=== PATIENT | female | born 1985 | race Caucasian/White ===

== ENCOUNTER 2019-11-05 16:23 | Emergency (ER) | payer OTHER ==
[2019-11-05] MEDS ORDERED: Norflex 60 MG/2 ML IM ONE (17:52)
[2019-11-05] MEDS ORDERED: TORAdol 30 mg Injection IM ONE (17:52)
[2019-11-05] MEDS ORDERED: Norflex 60 MG/2 ML ONE (17:56)
[2019-11-05] MEDS ORDERED: TORAdol 30 mg Injection ONE (17:56)
--- NOTE | 2019-11-05 18:20 | ERPHSYRPT ---
- History of Present Illness Time Seen by Provider: 11/05/19 16:53 Source: patient Exam Limitations: no limitations Patient Subjective Stated Complaint: pt reports dizziness upon standing, also reports neck and head pain. pt reports that her lymph nodes are enlarged and very painful. pt also reports nose bleed and intermittent fever. pt reports that she is currently being treated for her symptoms with prednisone and levaquin. Triage Nursing Assessment: pt is aox3, pupils perrl, afebrile, resps easy and non labored, radial pulses strong and equal, cap refill < 3 seconds, pt skin pink warm dry. pt appears in no acute distress, ambulatory to trt room with no diffiulty. Physician History: 33 years old female presented in the ER with a chief complaint ofneck pain off and on for the last few weeks to months. She also had a large lymph nodes in the neck and was treated with Levaquin and prednisone which he is currently taking. The patient reports having moderate to severe sharp shooting pain in neck more on the right side mostly in the muscles, aggravated with minimal movements and partially for being stolen and applying ice. Pain is also radiating to both upper shoulder areas. Denies any numbness tingling or weakness of the upper extremities. Denies any midline back pain. She also has pain stretching of the back of her head. Denies any fall or trauma. She has sinus infection multiple times and was seen by ENT and has nasal septum surgery done. Patient reports she's still having clear yellow color not in R. ear she had some bleeding that stopped after applying pressure. She is not bleeding currently. Denies any chest pain palpitations or shortness of breath. No numbness tingling or weakness. Denies any blurry vision or diplopia. Timing/Duration: week(s), intermittent, worse (A.AV date lives in a) Severity: moderate Modifying Factors: Improves With: cold therapy, immobilization, movement Associated Symptoms: fever, No abdominal pain, No shortness of breath, No diaphoresis, No cough, No headaches, No loss of appetite, No syncope, No seizure , No weakness Allergies/Adverse Reactions: citalopram hydrobromide [From Celexa] Allergy (Verified 11/05/19 16:47) Sulfa (Sulfonamide Antibiotics) Allergy (Verified 11/05/19 16:47) tramadol HCl [From Ultram] Allergy (Verified 11/05/19 16:47) Home Medications: Dextroamphetamine/Amphetamine [Adderall 10 mg Tablet] 0 mg PO CLARIFY 11/05/19 [ History] Duloxetine HCl 30 mg [Cymbalta 30 MG Capsule] 0 mg PO CLARIFY 11/05/19 [ History] Levofloxacin [Levaquin] 0 mg PO CLARIFY 11/05/19 [History] Prednisone 0 mg PO CLARIFY 11/05/19 [History] Pregabalin [Lyrica 100Mg] 0 mg PO CLARIFY 11/05/19 [History] Hx Tetanus, Diphtheria Vaccination/Date Given: Yes Hx Influenza Vaccination/Date Given: No Hx Pneumococcal Vaccination/Date Given: No Immunizations Up to Date: Yes - Review of Systems Constitutional: Fever, Fatigue Eyes: No Symptoms Ears, Nose, & Throat: Ear Pain, Nose Congestion, Nose Discharge, Sinus Drainage , Epistaxis Respiratory: No Symptoms Cardiac: No Symptoms Abdominal/Gastrointestinal: No Symptoms Genitourinary Symptoms: No Symptoms Musculoskeletal: Neck Pain Skin: No Symptoms Neurological: No Symptoms, Headache Psychological: No Symptoms Endocrine: No Symptoms Hematologic/Lymphatic: No Symptoms Immunological/Allergic: No Symptoms - Past Medical History Pertinent Past Medical History: Yes Musculoskeletal History: Other Psycho-Social History: Depression Female Reproductive Disorders: Cervical Cancer, Endometriosis Other Medical History: SHOULDER SURGERY X 3 FOR TORN MUSCLES AND SHREDDED IN LEFT SHOULDER - Past Surgical History Past Surgical History: Yes Neuro Surgical History: No Pertinent History Cardiac: No Pertinent History Respiratory: No Pertinent History Gastrointestinal: Appendectomy Musculoskeletal: Orthopedic Surgery Female Surgical History: Section, Hysterectomy Other Surgical History: left wrist - plate and screws. granulomas removed from lower abdomen. cyst removed from right neck. deviated septum repair. sinus surgery - Social History Smoking Status: Current every day smoker Drug Use: none Patient Lives Alone: No - Female History Hx Last Menstrual Period: hyst Hx Now: No - Nursing Vital Signs Nursing Vital Signs: Initial Vital Signs Temperature 98.3 F 11/05/19 16:33 Pulse Rate 91 H 11/05/19 16:33 Respiratory Rate 11/05/19 16:33 Blood Pressure 115/79 11/05/19 16:33 O2 Sat by Pulse Oximetry 98 11/05/19 16:33 Pain Scale Pain Intensity 5 - Physical Exam General Appearance: no apparent distress Eye Exam: PERRL/EOMI, eyes nml inspection Ears, Nose, Throat Exam: TMs normal, pharyngeal erythema (aall) Neck Exam: normal inspection, supple, full range of motion, other (is tender right trapezius area. No midline tenderness at all. No crepitus. 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, normal mood/affect, nml cerebellar function Skin Exam: normal color SpO2 Interpretation: normal SpO2: 99 O2 Delivery: Room Air - Course Nursing assessment & vital signs reviewed: Yes Ordered Tests: Active Orders 24 hr Category Date Time Status CERVICAL SPINE WO CONTRAST [CT] Stat Exams 11/05/19 17:53 Taken Medication Summary Discontinued Medications Generic Name Dose Route Start Last Admin Trade Name Freq PRN Reason Stop Dose Admin Ketorolac Tromethamine 30 mg 11/05/19 17:52 11/05/19 17:57 Toradol 30 Mg Injection IM 11/05/19 17:53 30 mg STAT ONE Administration Ketorolac Tromethamine Confirm 11/05/19 17:56 Toradol 30 Mg Injection Administered 11/05/19 17:57 Dose 30 mg .ROUTE .STK-MED ONE Orphenadrine Citrate 60 mg 11/05/19 17:52 11/05/19 17:57 Norflex 60 Mg/2 Ml IM 11/05/19 17:53 60 mg STAT ONE Administration Orphenadrine Citrate Confirm 11/05/19 17:56 Norflex 60 Mg/2 Ml Administered 11/05/19 17:57 Dose 60 mg .ROUTE .STK-MED ONE - Progress Progress: improved, pain not gone completely, re-examined Progress Note: sssandro is given Toradol and Norflex, feeling better on reevaluation. Nonfocal neuro exam. She has obvious tenderness in the neck muscles, no midline tenderness, I have obtained CT which showed neck muscle spasm but no acute finding in the C-spine. I believe because of the neck muscle spasm she is having pain in the back of her head/occipital area. She does not have any nasal bleed during ER although she has friable nasal mucosa but no signs of recent bleeding or lesion. Negative orthostatics. I do not think patient needs any further workup but would place her on NSAIDs and muscle relaxants and outpatient followup. Patient was reporting that muscle relaxants does not help and taking NSAIDs also not make much difference. I would not place her on narcotic pain medications. Patient and family were not happy the patient's pain is not completely resolved but the pain is more of a musculoskeletal. They 're counseled and is being discharged. Counseled pt/family regarding: diagnosis, need for follow-up, rad results - Departure Departure Disposition: Home Clinical Impression: Neck muscle strain Qualifiers: Encounter type: initial encounter Qualified Code(s): S16.1XXA - Strain of muscle, fascia and tendon at neck level, initial encounter Condition: Stable Critical Care Time: No Referrals: DOCTOR,NO FAMILY [Primary Care Provider] - TERESA PRUETT [ACTIVE STAFF] - Follow Up with PCP/3 days Instructions: Cervical Muscle Strain (DC), Neck Sprain (DC) Additional Instructions: /ibuprofen as needed along with muscle relaxants. Follow up with primary care physician for reevaluation. Return to ER for intractable pain, numbness tingling weakness of extremities etc. Prescriptions: Ibuprofen 600 mg PO Q6HPRN PRN 10 Days #20 tablet PRN Reason: Pain Cyclobenzaprine HCl 10 mg [Flexeril 10 MG] 10 mg PO TID #12 tablet
[2019-11-05 19:18] VITALS: BP 109/73; PULSE 95
[2019-11-05 19:20] VITALS: O2SAT 99
--- NOTE | 2019-11-06 08:36 | XRAY ---
Indication: Knots back of head and neck. Subluxation/impingement. Multiple contiguous axial images obtained through the cervical spine. Sagittal and coronal reformatted images obtained. Comparison: None Axial images negative for acute fracture, suspicious bony lesions, or spinal canal stenosis. Sagittal and coronal reformatted images demonstrates cervical lordotic straightening, positional versus paraspinal spasm. Vertebral body heights/disc spaces maintained. No acute compression fracture, subluxation, or jumped facet. Normal appearing craniocervical junction. Visualized noncontrasted soft tissues including base of the brain and lung apices are unremarkable. Impression: 1. Cervical lordotic straightening, positional versus paraspinal spasm. 2. Remaining CT cervical spine is negative.
== END 2019-11-05 19:54 | disposition home or self-care (01) ==
LOC: ED 16:23
DX: S16.1XXA Strain of muscle, fascia and tendon at neck level, initial encounter (principal); M50.90 Cervical disc disorder, unspecified, unspecified cervical region; Z85.41 Personal history of malignant neoplasm of cervix uteri; N80.9 Endometriosis, unspecified
CPT/HCPCS: 72125; 96372; 99284; J1885; J2360

== ENCOUNTER 2020-03-19 22:48 | Emergency (ER) | payer OTHER ==
--- NOTE | 2020-03-19 23:22 | ERPHSYRPT ---
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 slight decrease in subjective sensation index Timing/Duration: today Quality: painful Severity: moderate Location: other (left index lac) Possible Causes: other (lac from supervisor tree [employer] nut [employer]) Associated Symptoms: denies symptoms Allergies/Adverse Reactions: citalopram hydrobromide [From Celexa] Allergy (Verified 11/05/19 16:47) Sulfa (Sulfonamide Antibiotics) Allergy (Verified 11/05/19 16:47) tramadol HCl [From Ultram] Allergy (Verified 11/05/19 16:47) Home Medications: Dextroamphetamine/Amphetamine [Adderall 10 mg Tablet] 0 mg PO CLARIFY 11/05/19 [ History] Pregabalin [Lyrica 100Mg] 0 mg PO CLARIFY 11/05/19 [History] Hx Tetanus, Diphtheria Vaccination/Date Given: Yes Hx Influenza Vaccination/Date Given: No Hx Pneumococcal Vaccination/Date Given: No - Review of Systems Constitutional: No Fever, No Chills Eyes: No Symptoms Ears, Nose, & Throat: No Symptoms Respiratory: No Cough, No Dyspnea Cardiac: No Chest Pain, No Edema, No Syncope Abdominal/Gastrointestinal: No Abdominal Pain, No Nausea, No Vomiting, No Diarrhea Genitourinary Symptoms: No Dysuria Musculoskeletal: No Back Pain, No Neck Pain Skin: Skin Lesions (lac), No Rash Neurological: No Dizziness, No Focal Weakness, No Sensory Changes Psychological: No Symptoms Endocrine: No Symptoms All Other Systems: Reviewed and Negative - Past Medical History Pertinent Past Medical History: Yes Musculoskeletal History: Other Psycho-Social History: Depression Female Reproductive Disorders: Cervical Cancer, Endometriosis Other Medical History: SHOULDER SURGERY X 3 FOR TORN MUSCLES AND SHREDDED IN LEFT SHOULDER - Past Surgical History Past Surgical History: Yes Neuro Surgical History: No Pertinent History Cardiac: No Pertinent History Respiratory: No Pertinent History Gastrointestinal: Appendectomy Musculoskeletal: Orthopedic Surgery Female Surgical History: Section, Hysterectomy Other Surgical History: left wrist - plate and screws. granulomas removed from lower abdomen. cyst removed from right neck. deviated septum repair. sinus surgery - Social History Smoking Status: Current every day smoker Drug Use: none Patient Lives Alone: No - Nursing Vital Signs Nursing Vital Signs: Initial Vital Signs Pulse Rate 93 H 03/19/20 22:48 Respiratory Rate 20 03/19/20 22:48 Blood Pressure 121/87 03/19/20 22:48 O2 Sat by Pulse Oximetry 100 03/19/20 22:48 Pain Scale Pain Intensity 8 - Physical Exam General Appearance: no apparent distress, alert Eye Exam: PERRL/EOMI, eyes nml inspection Ears, Nose, Throat Exam: normal ENT inspection, pharynx normal, moist mucous membranes Neck Exam: normal inspection, non-tender, supple, full range of motion Respiratory Exam: normal breath sounds, lungs clear, No respiratory distress Cardiovascular Exam: regular rate/rhythm, normal heart sounds Gastrointestinal/Abdomen Exam: soft, mass, No tenderness Pelvic Exam: deferred Rectal Exam: deferred Back Exam: normal inspection, normal range of motion, No CVA tenderness, No vertebral tenderness Extremity Exam: normal inspection, normal range of motion Neurologic Exam: alert, oriented x 3, cooperative, normal mood/affect, other ( slight decrease in sensation distal left index may be digital nerve injury.), No motor deficits Skin Exam: normal color, warm, dry, laceration (left index into SQ), other SpO2 Interpretation: normal O2 Delivery: Room Air Procedures - Laceration/Wound Repair Left Finger Wound Location: Left Wound Length (cm): 2 Wound's Depth, Shape: irregular, flap, into subcut Wound Explored: no foreign body noted Irrigated: Yes Hibiclens Prep: Yes Anesthesia: local, 1% Lidocaine Volume Anesthetic (ccs): 2 Wound Debrided: minimal Wound Repaired With: sutures Suture Size/Type: 4-0, prolene Number of Sutures: 6 Layer Closure?: No Sterile Dressing Applied?: Yes Splint Applied?: Yes Sling Applied?: No - Course Nursing assessment & vital signs reviewed: Yes - Progress Progress: improved, re-examined Counseled pt/family regarding: diagnosis, need for follow-up - Departure Departure Disposition: Home Clinical Impression: laceration left index with nerve injury Condition: Good Critical Care Time: No Referrals: DOCTOR,NO FAMILY [Primary Care Provider] - Instructions: Laceration Repair With Stitches (DC) Additional Instructions: followup with your dr - sutures may be removed in 10 days return meantime if any redness, drainage or other concerns- see your Dr. for the loss of sensation which may be a nerve injury- sometimes this is just a nerve bruise and will recover in a few days., but the nerve in that area may have also been cut by the injury. Prescriptions: Mupirocin [Bactroban OINTMENT] 22 gm TP BID #1 tube
[2020-03-19 23:30] VITALS: O2SAT 100
[2020-03-19] MEDS ORDERED: NORCO 5/325 MG PO ONE (23:57)
[2020-03-20] MEDS ORDERED: NORCO 5/325 MG ONE (00:03)
[2020-03-20 00:12] VITALS: BP 108/76; PULSE 89
== END 2020-03-20 00:12 | disposition home or self-care (01) ==
LOC: ED 22:48
DX: S64.491A Injury of digital nerve of left index finger, initial encounter (principal); W45.8XXA Other foreign body or object entering through skin, initial encounter; W27.8XXA Contact with other nonpowered hand tool, initial encounter; Y93.H2 Activity, gardening and landscaping; Y92.89 Other specified places as the place of occurrence of the external cause
CPT/HCPCS: 12001; 99283; A9270-GY

== ENCOUNTER 2020-08-22 18:57 | Emergency (ER) | payer OTHER ==
[2020-08-22 19:32] LABS: Appearance SLIGHTLY CLOUDY (CLEAR); Bacteria RARE /HPF (NEGATIVE); Bilirubin SMALL (NEGATIVE); Blood NEGATIVE Ery/ul (0-5); Epithelial Cells RARE /HPF (FEW); Glucose NEGATIVE (NEGATIVE); Ketones TRACE (NEGATIVE); Leukocyte Esterase TRACE (NEGATIVE); Mucus SLIGHT /HPF (NEGATIVE); Nitrite NEGATIVE (NEGATIVE); Protein,Urine Dip 30 (Negative); Urobilinogen NEGATIVE mg/dL (0-1)
[2020-08-22 19:47] LABS: Amphetamine,Urine POSITIVE (NEGATIVE); Barbiturate,Urine NEGATIVE (NEGATIVE); Benzodiazepine,Urine NEGATIVE (NEGATIVE); Cocaine,Urine NEGATIVE (NEGATIVE); Methadone,Urine NEGATIVE (NEGATIVE); Opiate,Urine POSITIVE (NEGATIVE); PCP,Urine NEGATIVE (NEGATIVE); THC,Urine NEGATIVE (NEGATIVE)
--- NOTE | 2020-08-22 20:04 | ERPHSYRPT ---
- History of Present Illness Historian: patient Patient Subjective Stated Complaint: pt states that she has been having vom iting, diarrhea and trouble urinating since , pt states that she is having abd pain that radiates to rt flank Triage Nursing Assessment: pt ambulated into the er; pt is axo x4; c/o rt abd and rt flank pain; states 8/10 pain to rt abd and rt flank; abd is soft, hyperactive bowel sounds in all quads, tenderness with palpation to RUQ; tenderness to rt flank area; c/o N/D; c/o difficulty urinating; vitals wnl Physician History: 34 yo wf w R flank/R abdominal pain x 4 days. Pain 8/10 and sharp. Nothing makes the pain better or worse. She has frequency/urgency/mild dysuria/fever/mild diarrhea. Pt has a h/o uti's/kidney stones. is denied. Timing/Duration: other (4 days) Activities at Onset: rest Quality: sharpness Abdominal Pain Onset Location: RLQ, flank Pain Radiation: flank Severity of Pain-Max: severe Severity of Pain-Current: severe Modifying Factors: Improves With: nothing, urinating Associated Symptoms: back, fever/chills Previous symptoms: same symptoms as today Allergies/Adverse Reactions: citalopram hydrobromide [From Celexa] Allergy (Verified 08/22/20 19:04) Sulfa (Sulfonamide Antibiotics) Allergy (Verified 08/22/20 19:04) tramadol HCl [From Ultram] Allergy (Verified 08/22/20 19:04) Home Medications: Dextroamphetamine/Amphetamine [Adderall 10 mg Tablet] 20 mg PO BID 11/05/19 [History] Pregabalin [Lyrica 100Mg] 10 mg PO DAILY 11/05/19 [History] Duloxetine HCl 30 mg PO DAILY 08/22/20 [History] Hydrocodone Bit/Acetaminophen [[place] 10-325 Tablet] 1 tab PO BID 08/22/20 [History] Tizanidine HCl 4 mg PO TID 08/22/20 [History] Hx Tetanus, Diphtheria Vaccination/Date Given: Yes Hx Influenza Vaccination/Date Given: No Hx Pneumococcal Vaccination/Date Given: No Travel Risk - International Travel Have you traveled outside of the country in past 3 weeks: No - Coronavirus Screening Are you exhibiting any of the following symptoms?: Yes Symptoms: Fever, Vomiting/Diarrhea, Headaches/Body Aches/Fatigue Close contact with a COVID-19 positive Pt in past 14-21 Days: No - Review of Systems Constitutional: Fever, Chills Eyes: No Symptoms Ears, Nose, & Throat: No Symptoms Respiratory: No Symptoms Cardiac: No Symptoms Abdominal/Gastrointestinal: Abdominal Pain, Vomiting, Diarrhea Genitourinary Symptoms: Dysuria, Frequency, Urgency Musculoskeletal: No Symptoms Skin: No Symptoms Neurological: No Symptoms Psychological: No Symptoms Endocrine: No Symptoms Hematologic/Lymphatic: No Symptoms Immunological/Allergic: No Symptoms - Past Medical History Pertinent Past Medical History: Yes Musculoskeletal History: Other Psycho-Social History: Depression Female Reproductive Disorders: Cervical Cancer, Endometriosis Other Medical History: SHOULDER SURGERY X 4 FOR TORN MUSCLES AND SHREDDED IN LEFT SHOULDER - Past Surgical History Past Surgical History: Yes Neuro Surgical History: No Pertinent History Cardiac: No Pertinent History Respiratory: No Pertinent History Gastrointestinal: Appendectomy Musculoskeletal: Orthopedic Surgery Female Surgical History: Section, Hysterectomy Other Surgical History: left wrist - plate and screws. granulomas removed from lower abdomen. cyst removed from right neck. deviated septum repair. sinus surgery - Social History Smoking Status: Current every day smoker Exposure to second hand smoke: Yes Drug Use: none Patient Lives Alone: No - Female History Hx Now: No - Nursing Vital Signs Nursing Vital Signs: Initial Vital Signs Temperature 98.4 F 08/22/20 19:09 Pulse Rate 109 H 08/22/20 19:09 Respiratory Rate 16 08/22/20 19:09 Blood Pressure 122/80 08/22/20 19:09 O2 Sat by Pulse Oximetry 99 08/22/20 19:09 Pain Scale Pain Intensity 8 - Physical Exam General Appearance: no apparent distress Eye Exam: PERRL/EOMI, eyes nml inspection Ears, Nose, Throat Exam: normal ENT inspection, TMs normal, pharynx normal, moist mucous membranes Neck Exam: normal inspection, non-tender, supple, No meningismus, No mass, No Brudzinski, No Kernig's Respiratory Exam: normal breath sounds, lungs clear, airway intact Cardiovascular Exam: regular rate/rhythm, normal heart sounds, normal peripheral pulses, No murmur Gastrointestinal/Abdomen Exam: soft, tenderness (Mild suprapubic ttp wo guarding or rebound) Pelvic Exam: not done Back Exam: CVA tenderness (R mild) Extremity Exam: normal inspection, normal range of motion Neurologic Exam: alert, oriented x 3, cooperative, 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, normal mood/affect, sensation nml, No motor deficits, No sensory deficit Skin Exam: normal color, warm, dry Lymphatic Exam: No adenopathy SpO2 Interpretation: normal SpO2: 99 O2 Delivery: Room Air - Course Nursing assessment & vital signs reviewed: Yes Ordered Tests: Active Orders 24 hr Category Date Time Status CULTURE,URINE Stat Lab 08/22/20 19:09 Received HCG,QUALITATIVE URINE Stat Lab 08/22/20 19:29 Completed UA W/RFX UR CULTURE Stat Lab 08/22/20 19:09 Completed Urine Triage Profile Stat Lab 08/22/20 19:29 Completed Lab/Rad Data: Laboratory Results 08/22/20 08/22/20 08/22/20 Range/Units 19:29 19:29 19:09 Urine Color SHARIF (YELLOW) Urine Appearance SLIGHTLY CLOUDY (CLEAR) Urine pH 5.0 (5-6) Ur Specific [place] 1.040 (1.005-1.025) Urine Protein 30 (Negative) Urine Ketones TRACE (NEGATIVE) Urine Blood NEGATIVE (0-5) [place]/ul Urine Nitrite NEGATIVE (NEGATIVE) Urine Bilirubin SMALL (NEGATIVE) Urine Urobilinogen NEGATIVE (0-1) mg/dL Ur Leukocyte Esterase TRACE (NEGATIVE) Urine WBC (Auto) 16-25 (0-5) /HPF Urine RBC (Auto) 3-5 (0-2) /HPF U Hyaline Cast (Auto) 3-5 (0-2) /LPF U Epithel Cells (Auto) RARE (FEW) /HPF Urine Bacteria (Auto) RARE (NEGATIVE) /HPF Urine Mucus (Auto) SLIGHT (NEGATIVE) /HPF Urine Culture Reflexed YES (NO) Urine Glucose NEGATIVE (NEGATIVE) mg/dL Urine HCG, Qual NEGATIVE (Negative) Urine Opiates Level POSITIVE (NEGATIVE) Ur Methadone NEGATIVE (NEGATIVE) Urine Barbiturates NEGATIVE (NEGATIVE) Ur Phencyclidine (PCP) NEGATIVE (NEGATIVE) Urine Amphetamine POSITIVE (NEGATIVE) U Benzodiazepine Level NEGATIVE (NEGATIVE) Urine Cocaine NEGATIVE (NEGATIVE) Urine Marijuana (THC) NEGATIVE (NEGATIVE) - Progress Progress Note: 08/22/20 20:03 Pt refused pain meds. Wants work excuse. Counseled pt/family regarding: lab results - Departure Departure Disposition: Home Clinical Impression: Urinary tract infection Condition: Stable Critical Care Time: No Referrals: CASSANDRA WICK NP [Primary Care Provider] - Instructions: Urinary Tract Infection, Adult (DC) Additional Instructions: Fluids Motrin/tylenol for pain Follow up with your family MD in 1-2 days Return to ER for increasing pain or temperature greater than 100.5 Forms: Work/School Release Form Prescriptions: Nitrofurantoin Monohyd/M-Cryst [Macrobid 100 mg Capsule] 100 mg PO BID 7 Days #14 capsule
[2020-08-22 20:19] VITALS: BP 101/72; PULSE 112
[2020-08-23 00:22] VITALS: O2SAT 99
== END 2020-08-22 20:16 | disposition home or self-care (01) ==
LOC: ED 18:57
DX: N39.0 Urinary tract infection, site not specified (principal)
CPT/HCPCS: 80307; 81001; 84703; 87086; 99283

== ENCOUNTER 2021-04-02 15:10 | Emergency (ER) | payer OTHER ==
[2021-04-02 15:29] VITALS: BP 136/82; PULSE 90; O2SAT 98
--- NOTE | 2021-04-02 16:24 | ERPHSYRPT ---
- History of Present Illness Time Seen by Provider: 04/02/21 15:35 Source: patient Exam Limitations: no limitations Patient Subjective Stated Complaint: pt here for pain and bruising to right foot, she is unawear of injury. she states she was cleaning and moving things yesterday Triage Nursing Assessment: pt alert, resp easy, face mask in place, skin w/d/p,.has bruising and some swelling to foot Physician History: Patient is a 35-year-old female who presents with a complaint of pain and bruising of her right foot since yesterday. She has increased pain with walking she can move her great toe but there is pain associated and she does not know of any injury that she might of suffered although she was moving furniture and working yesterday. Inspect was reviewed and is outstanding Method of Injury: unknown Occurred: yesterday Quality: aching Severity of Pain-Max: moderate Severity of Pain-Current: moderate Lower Extremities Pain: foot: right Modifying Factors: Improves With: movement Associated Symptoms: none Allergies/Adverse Reactions: citalopram hydrobromide [From Celexa] Allergy (Verified 04/02/21 15:29) ketorolac [From Toradol] Allergy (Verified 04/02/21 15:30) Sulfa (Sulfonamide Antibiotics) Allergy (Verified 04/02/21 15:29) tramadol HCl [From Ultram] Allergy (Verified 04/02/21 15:29) Home Medications: Dextroamphetamine/Amphetamine [Adderall 10 mg Tablet] 20 mg PO BID 11/05/19 [History] Pregabalin [Lyrica 100Mg] 10 mg PO DAILY 11/05/19 [History] Duloxetine HCl 30 mg PO DAILY 08/22/20 [History] Hydrocodone Bit/Acetaminophen [[place] 10-325 Tablet] 1 tab PO BID 08/22/20 [History] Amoxicillin [AMOXIL 250 MG CAPSULE] 1 ea TID 04/02/21 [History] Hx Tetanus, Diphtheria Vaccination/Date Given: Yes Hx Influenza Vaccination/Date Given: No Hx Pneumococcal Vaccination/Date Given: No Immunizations Up to Date: Yes Travel Risk - International Travel Have you traveled outside of the country in past 3 weeks: No - Coronavirus Screening Are you exhibiting any of the following symptoms?: No Close contact with a COVID-19 positive Pt in past 14-21 Days: No - Vaccine Status Have you recieved a Covid-19 vaccination: No - Review of Systems Constitutional: No Fever, No Chills Eyes: No Symptoms Ears, Nose, & Throat: No Symptoms Respiratory: No Cough, No Dyspnea Cardiac: No Chest Pain, No Edema, No Syncope Abdominal/Gastrointestinal: No Abdominal Pain, No Nausea, No Vomiting, No Diarrhea Genitourinary Symptoms: No Dysuria Musculoskeletal: No Back Pain, No Neck Pain Skin: No Rash Neurological: No Dizziness, No Focal Weakness, No Sensory Changes Psychological: No Symptoms Endocrine: No Symptoms All Other Systems: Reviewed and Negative - Past Medical History Pertinent Past Medical History: Yes Musculoskeletal History: Other Psycho-Social History: Anxiety, Attention Deficit Disorder, Depression Female Reproductive Disorders: Cervical Cancer, Endometriosis Other Medical History: SHOULDER SURGERY X 4 FOR TORN MUSCLES AND SHREDDED IN LEFT SHOULDER ,lupus - Past Surgical History Past Surgical History: Yes Neuro Surgical History: No Pertinent History Cardiac: No Pertinent History Respiratory: No Pertinent History Gastrointestinal: Appendectomy, Exploratory Laparoscopy Musculoskeletal: Orthopedic Surgery Female Surgical History: Hysterectomy, Dilation & Curettage, Section Other Surgical History: left wrist - plate and screws,skin grafting. granulomas removed from lower abdomen. cyst removed from right neck. deviated septum repair. sinus surgery - Social History Smoking Status: Current every day smoker Exposure to second hand smoke: Yes Drug Use: none Patient Lives Alone: No - Female History Hx Last Menstrual Period: hyster Hx Now: No - Nursing Vital Signs Nursing Vital Signs: Initial Vital Signs Temperature 97.5 F 04/02/21 15:23 Pulse Rate 90 04/02/21 15:23 Respiratory Rate 16 04/02/21 15:23 Blood Pressure 136/82 04/02/21 15:23 O2 Sat by Pulse Oximetry 98 04/02/21 15:23 Pain Scale Pain Intensity 8 - Physical Exam General Appearance: mild distress Eyes, Ears, Nose, Throat Exam: normal ENT inspection Neck Exam: normal inspection, non-tender, supple Cardiovascular/Respiratory Exam: no respiratory distress Back Exam: normal inspection, normal range of motion Hips Exam: bilateral: normal inspection, no evidence of injury Legs Exam: bilateral leg: non-tender, normal range of motion Knees Exam: bilateral knee: non-tender, normal inspection, normal range of motion Ankle Exam: bilateral ankle: non-tender, normal inspection, normal range of motion Foot Exam: right foot: bone tenderness, ecchymosis, limited range of motion, soft tissue tenderness Neuro/Tendon Exam: normal sensation, normal motor functions Mental Status Exam: alert, oriented x 3, cooperative Skin Exam: ecchymosis (Great toe and first metatarsophalangeal joint) SpO2 Interpretation: normal SpO2: 98 O2 Delivery: Room Air - Course Nursing assessment & vital signs reviewed: Yes - Radiology Exams Foot X-ray Interpretation: Interpreted by me, Negative Ordered Tests: Active Orders 24 hr Category Date Time Status FOOT (MINIMUM 3 VIEWS) Stat Exams 04/02/21 16:16 Taken - Progress Progress: unchanged - Departure Departure Disposition: Home Clinical Impression: Contusion of right foot Condition: Stable Critical Care Time: No Referrals: CASSANDRA WICK NP [Primary Care Provider] - Instructions: Contusion (DC)
--- NOTE | 2021-04-02 19:37 | XRAY ---
Indication: Pain and bruising following injury. Comparison: None 3 nonweightbearing views right foot demonstrates normal bones, articulation, and soft tissues.
== END 2021-04-02 16:35 | disposition home or self-care (01) ==
LOC: ED 15:10
DX: S90.31XA Contusion of right foot, initial encounter (principal); M79.671 Pain in right foot; Z79.899 Other long term (current) drug therapy; Z79.891 Long term (current) use of opiate analgesic
CPT/HCPCS: 73630; 99283

== ENCOUNTER 2021-06-15 13:47 | Emergency (ER) | payer OTHER ==
--- NOTE | 2021-06-15 13:56 | ERPHSYRPT ---
- History of Present Illness Time Seen by Provider: 06/15/21 13:56 Source: patient Exam Limitations: no limitations Physician History: This is a 35-year-old white female who has chronic right ear infections that have been recurrent over the last 2 months. She just moved in this area from [place] per her report. Patient states that she is on hydrocodone for pain chronically. She had an appointment to see research psychologist in [place] but then the physician moved out of the area. She has no primary care physician here in this area. Patient denies fever. She denies chest pain. She has no abdominal pain. Timing/Duration: gradual onset Severity: mild (To moderate) ENT Location: ear (R) Prearrival Treatment: over the counter meds Associated Symptoms: ear pain (R) Allergies/Adverse Reactions: citalopram hydrobromide [From Celexa] Allergy (Verified 06/15/21 14:03) ketorolac [From Toradol] Allergy (Verified 06/15/21 14:03) Sulfa (Sulfonamide Antibiotics) Allergy (Verified 06/15/21 14:03) tramadol HCl [From Ultram] Allergy (Verified 06/15/21 14:03) Home Medications: Dextroamphetamine/Amphetamine [Adderall 10 mg Tablet] 20 mg PO BID 11/05/19 [History] Duloxetine HCl 30 mg PO DAILY 08/22/20 [History] Hydrocodone Bit/Acetaminophen [[place] 10-325 Tablet] 1 tab PO BID 08/22/20 [History] Hx Tetanus, Diphtheria Vaccination/Date Given: Yes Hx Influenza Vaccination/Date Given: No Hx Pneumococcal Vaccination/Date Given: No Travel Risk - International Travel Have you traveled outside of the country in past 3 weeks: No - Coronavirus Screening Are you exhibiting any of the following symptoms?: No Close contact with a COVID-19 positive Pt in past 14-21 Days: No - Vaccine Status Have you recieved a Covid-19 vaccination: No - Review of Systems Constitutional: No Symptoms Eyes: No Symptoms Ears, Nose, & Throat: Ear Pain (Right), Ear Discharge Respiratory: No Symptoms Cardiac: No Symptoms Abdominal/Gastrointestinal: No Symptoms (Mild) Genitourinary Symptoms: No Symptoms Musculoskeletal: No Symptoms Skin: No Symptoms Neurological: No Symptoms Psychological: No Symptoms Endocrine: No Symptoms Hematologic/Lymphatic: No Symptoms Immunological/Allergic: No Symptoms All Other Systems: Reviewed and Negative - Past Medical History Pertinent Past Medical History: Yes Musculoskeletal History: Other Psycho-Social History: Anxiety, Attention Deficit Disorder, Depression Female Reproductive Disorders: Cervical Cancer, Endometriosis Other Medical History: SHOULDER SURGERY X 4 FOR TORN MUSCLES AND SHREDDED IN LEFT SHOULDER ,lupus - Past Surgical History Past Surgical History: Yes Neuro Surgical History: No Pertinent History Cardiac: No Pertinent History Respiratory: No Pertinent History Gastrointestinal: Appendectomy, Exploratory Laparoscopy Musculoskeletal: Orthopedic Surgery Female Surgical History: Hysterectomy, Dilation & Curettage, Section Other Surgical History: left wrist - plate and screws,skin grafting. granulomas removed from lower abdomen. cyst removed from right neck. deviated septum repair. sinus surgery - Social History Smoking Status: Current every day smoker Exposure to second hand smoke: Yes Drug Use: none Patient Lives Alone: No - Nursing Vital Signs Nursing Vital Signs: Initial Vital Signs Temperature 97.5 F 06/15/21 13:53 Pulse Rate 91 H 06/15/21 13:53 Blood Pressure 108/68 06/15/21 13:53 O2 Sat by Pulse Oximetry 97 06/15/21 13:53 Pain Scale Pain Intensity 8 - Physical Exam General Appearance: no apparent distress, alert Eye Exam: bilateral eye: normal inspection, PERRL, EOMI Ear Exam: right ear: erythema (Mild right ear canal), TM perforation (Mild with fibrinous exudate), left ear: canal normal, TM normal, bilateral ear: auricle normal Nasal Exam: normal inspection Throat Exam: normal, pharynx normal, No dental tenderness Neck Exam: normal inspection Cardiovascular/Respiratory Exam: chest non-tender, no respiratory distress Abdominal Exam: non-tender Neurologic Exam: alert, oriented x 3, cooperative, mains and service supervisor II-XII nml as tested, normal mood/affect, nml cerebellar function, nml station & gait, sensation nml Skin Exam: normal color, warm, dry SpO2 Interpretation: normal O2 Delivery: Room Air - Course Nursing assessment & vital signs reviewed: Yes - Progress Progress: unchanged Counseled pt/family regarding: diagnosis, need for follow-up - Departure Departure Disposition: Home Clinical Impression: Right acute otitis media Condition: Stable Critical Care Time: No Referrals: CASSANDRA WICK QUALITY AND RELIABILITY ENGINEER [Primary Care Provider] - Additional Instructions: Do not put any liquids in the right ear. Take your medication as prescribed. Use the list provided to find a local primary care provider. Prescriptions: Prednisone 10 mg [Deltasone 10 mg] 10 mg PO TID #12 tablet Azithromycin 250 mg [Zithromax 250 MG TABLET] 250 mg PO ZPACK #6 tablet
[2021-06-15 14:48] VITALS: BP 107/71; PULSE 92; O2SAT 96
== END 2021-06-15 14:48 | disposition home or self-care (01) ==
LOC: ED 13:47
DX: H66.91 Otitis media, unspecified, right ear (principal); Z79.899 Other long term (current) drug therapy
CPT/HCPCS: 99283

== ENCOUNTER 2021-08-01 21:38 | Emergency (ER) | payer OTHER ==
[2021-08-01 22:04] LABS: Absolute Neutrophil Ct (ANC) 4.66 (1.4-6.9); BASOPHIL % 0.1 % (0.0-0.4); Basophil (Absolute #) 0.01 (0-0.4); Eosinophil % 0.2 % (0.00-5.0); Eosinophil (Absolute #) 0.02 (0-0.5); Hematocrit 42.9 % (35-47); Lymphocyte (Absolute #) 3.28 (1.0-4.6); Mean Cell Volume 98.4 fl (78-100); Mean Corpuscular Hemoglobin 32.1 pg (26-32); Mean Corpuscular Hgb Concent. 32.6 g/dl (32-36); Mean Platelet Volume 9.3 fl (7.5-11.0); Monocyte (Absolute #) 0.43 (0.0-1.3); Monocytes % 5.1 % (0.0-12.0); Neutrophil % 55.6 % (36.0-66.0); Platelet Count 350 K/mm3 (150-450); Red Blood Count 4.36 M/mm3 (4.1-5.4); Red Cell Distribution Width 12.2 % (11.5-14.0); White Blood Count 8.4 K/mm3 (4.0-10.5)
[2021-08-01 22:12] LABS: ALBUMIN 4.8 g/dL (3.5-5.0); ALKALINE PHOSPHATASE 63 U/L (38-126); ANION GAP 14.7 MEQ/L (5-15); BLOOD UREA NITROGEN 8 mg/dL (7-17); CHLORIDE 101 mmol/L (98-107); Calcium 9.8 mg/dL (8.4-10.2); Carbon Dioxide 30 mmol/L (22-30); Creatinine 1 0.57 mg/dL (0.52-1.04); EST GLOMERULAR FILTRATION RATE > 60.0 ML/MIN; Glucose 112 mg/dL (74-106); LIPASE 50 U/L (23-300); Potassium 3.5 mmol/L (3.5-5.1); SGOT/AST 20 U/L (14-36); SGPT/ALT 15 U/L (0-35); SODIUM 142 mmol/L (137-145)
[2021-08-01 22:13] LABS: Appearance TURBID (CLEAR); Bacteria PACKED /HPF (NEGATIVE); Bilirubin NEGATIVE (NEGATIVE); Blood NEGATIVE Ery/ul (0-5); Epithelial Cells PACKED /HPF (FEW); Glucose NEGATIVE (NEGATIVE); Ketones NEGATIVE (NEGATIVE); Leukocyte Esterase NEGATIVE (NEGATIVE); Mucus SLIGHT /HPF (NEGATIVE); Nitrite POSITIVE (NEGATIVE); Protein,Urine Dip 30 (Negative); Specific Gravity 1.026 (1.005-1.025); Urobilinogen NEGATIVE mg/dL (0-1); WBC 26-50 /HPF (0-5)
[2021-08-01] MEDS ORDERED: ROCEPHIN 2 Gm-D5w 50ML BAG** 2 G/50 ML IVPB IV STA (22:22)
[2021-08-01] MEDS ORDERED: Sodium Chloride 0.9% 1000 ML 1,000 ML IV STA (22:23)
[2021-08-01] MEDS ORDERED: Hydromorphone 1 mg/ml Injection IV ONE (22:23)
[2021-08-01] MEDS ORDERED: Zofran 4 MG/2 ML VIAL IV ONE (22:23)
--- NOTE | 2021-08-01 22:27 | ERPHSYRPT ---
- History of Present Illness Time Seen by Provider: 08/01/21 21:44 Historian: patient Exam Limitations: no limitations Patient Subjective Stated Complaint: pt states "I have been having belly pain, diarrhea, and vomiting since saturday." Triage Nursing Assessment: pt ambulated into the er; pt is axo x4; c/o abd pain; pt states 8/10 pain RUQ; pt states that pain to RUQ that radiates to rt shoulder; pt states pain is sharp and burning; pt states stool has been houser to white in color; pt c/o N/V/D; pt states that she is passing a lot of gas; pt states that she has decreased oral intake; pt c/o lightheadness; pt states that urine is dark in color; pt states that she has decreased urine output; abd is flat, soft; hyperactive bowel sounds in all quads; tenderness to RUQ with palptation; vitals wnl Physician History: 35 years old female presented in the ER with chief complaint of right-sided abdominal pain for the last 4 days, gradually worsening, sharp cramping moderate to severe intensity, aggravated with palpation/movements and associated with multiple episodes of nonprojectile, nonbilious vomiting without hematemesis and multiple episodes of loose stools. Denies any hematochezia. No fever or chills reported. Patient is unable to hold much down and feels weak fatigued tired. Timing/Duration: day(s) (4), intermittent, gradual onset, worse Activities at Onset: rest Quality: cramping, sharpness Abdominal Pain Onset Location: RUQ, flank Pain Radiation: shoulder Modifying Factors: Worsens With: movement, palpation, vomiting, position Associated Symptoms: diarrhea, nausea, vomiting Previous symptoms: no prior history Allergies/Adverse Reactions: citalopram hydrobromide [From Celexa] Allergy (Verified 08/01/21 21:50) ketorolac [From Toradol] Allergy (Verified 08/01/21 21:50) Sulfa (Sulfonamide Antibiotics) Allergy (Verified 08/01/21 21:50) tramadol HCl [From Ultram] Allergy (Verified 08/01/21 21:50) Home Medications: Dextroamphetamine/Amphetamine [Adderall 10 mg Tablet] 20 mg PO BID 11/05/19 [History] Duloxetine HCl 30 mg PO DAILY 08/22/20 [History] Hydrocodone Bit/Acetaminophen [[place] 10-325 Tablet] 1 tab PO BID 08/22/20 [His tory] Hx Tetanus, Diphtheria Vaccination/Date Given: Yes Hx Influenza Vaccination/Date Given: No Hx Pneumococcal Vaccination/Date Given: No Travel Risk - International Travel Have you traveled outside of the country in past 3 weeks: No - Coronavirus Screening Are you exhibiting any of the following symptoms?: Yes Symptoms: Vomiting/Diarrhea Close contact with a COVID-19 positive Pt in past 14-21 Days: No - Vaccine Status Have you recieved a Covid-19 vaccination: No - Review of Systems Constitutional: No Symptoms Eyes: No Symptoms Ears, Nose, & Throat: No Symptoms Respiratory: No Symptoms Cardiac: No Symptoms Abdominal/Gastrointestinal: Abdominal Pain, Nausea, Vomiting, Diarrhea Genitourinary Symptoms: No Symptoms Musculoskeletal: No Symptoms Skin: No Symptoms Neurological: No Symptoms Psychological: No Symptoms Endocrine: No Symptoms Hematologic/Lymphatic: No Symptoms Immunological/Allergic: No Symptoms - Past Medical History Pertinent Past Medical History: Yes Musculoskeletal History: Other Psycho-Social History: Anxiety, Attention Deficit Disorder, Depression Female Reproductive Disorders: Cervical Cancer, Endometriosis Other Medical History: SHOULDER SURGERY X 4 FOR TORN MUSCLES AND SHREDDED IN LEFT SHOULDER ,lupus - Past Surgical History Past Surgical History: Yes Neuro Surgical History: No Pertinent History Cardiac: No Pertinent History Respiratory: No Pertinent History Gastrointestinal: Appendectomy, Exploratory Laparoscopy Musculoskeletal: Orthopedic Surgery Female Surgical History: Hysterectomy, Dilation & Curettage, Section Other Surgical History: left wrist - plate and screws,skin grafting. granulomas removed from lower abdomen. cyst removed from right neck. deviated septum repair. sinus surgery - Social History Smoking Status: Current every day smoker Exposure to second hand smoke: Yes Drug Use: none Patient Lives Alone: No - Female History Hx Now: (UNKN) - Nursing Vital Signs Nursing Vital Signs: Initial Vital Signs Temperature 97.1 F 08/01/21 21:53 Pulse Rate 83 08/01/21 21:53 Respiratory Rate 16 08/01/21 21:53 Blood Pressure 137/87 08/01/21 21:53 O2 Sat by Pulse Oximetry 100 08/01/21 21:53 Pain Scale Pain Intensity 6 - Physical Exam General Appearance: no apparent distress, alert Eye Exam: PERRL/EOMI, eyes nml inspection Ears, Nose, Throat Exam: normal ENT inspection, pharynx normal Neck Exam: normal inspection, supple, full range of motion Respiratory Exam: normal breath sounds, lungs clear Cardiovascular Exam: regular rate/rhythm, normal heart sounds Gastrointestinal/Abdomen Exam: soft, normal bowel sounds, tenderness (Right upper quadrant/flank), guarding Extremity Exam: normal inspection, normal range of motion Neurologic Exam: alert, oriented x 3, cooperative Skin Exam: normal color SpO2 Interpretation: normal SpO2: 100 O2 Delivery: Room Air Ordered Tests: Active Orders 24 hr Category Date Time Status IV Insertion STAT Care 08/01/21 22:23 Active NPO (ED) STAT Care 08/01/21 22:23 Active ABDOMEN AND PELVIS W CONTRAST [CT] Stat Exams 08/01/21 23:06 Taken CBC W DIFF Stat Lab 08/01/21 21:58 Completed CMP Stat Lab 08/01/21 21:58 Completed CULTURE,URINE Stat Lab 08/01/21 21:58 Received HCG,QUALITATIVE URINE Stat Lab 08/01/21 21:58 Completed LIPASE Stat Lab 08/01/21 21:58 Completed UA W/RFX UR CULTURE Stat Lab 08/01/21 21:58 Completed Medication Summary Discontinued Medications Generic Name Dose Route Start Last Admin Trade Name Freq PRN Reason Stop Dose Admin Hydromorphone HCl 0.5 mg 08/01/21 22:23 08/01/21 22:36 Hydromorphone 1 Mg/1ml Inj 1 Mg/Ml Syringe IV 08/01/21 22:24 0.5 mg STAT ONE Administration Hydromorphone HCl Confirm 08/01/21 22:29 Hydromorphone 1 Mg/1ml Inj 1 Mg/Ml Syringe Administered 08/01/21 22:30 Dose 1 mg .ROUTE .STK-MED ONE Ceftriaxone Sodium/Dextrose 2 g in 50 mls @ 100 mls/hr 08/01/21 22:22 08/01/21 23:39 Rocephin 2 Gm-D5w 50ml Bag IV 08/01/21 22:51 Infused STAT STA Infusion Sodium Chloride 1,000 mls @ 999 mls/hr 08/01/21 22:23 08/01/21 23:39 Sodium Chloride 0.9% 1000 Ml IV 08/01/21 23:23 Infused .Q1H1M STA Infusion Sodium Chloride Confirm 08/01/21 22:29 Sodium Chloride 0.9% 1000 Ml Administered 08/01/21 22:30 Dose 1,000 mls @ ud .ROUTE .STK-MED ONE Ceftriaxone Sodium/Dextrose Confirm 08/01/21 22:29 Rocephin 2 Gm-D5w 50ml Bag Administered 08/01/21 22:30 Dose 2 g in 50 mls @ ud IV .STK-MED ONE Ondansetron HCl 4 mg 08/01/21 22:23 08/01/21 22:36 Ondansetron Hcl 4 Mg/2 Ml Vial IV 08/01/21 22:24 4 mg STAT ONE Administration Ondansetron HCl Confirm 08/01/21 22:29 Ondansetron Hcl 4 Mg/2 Ml Vial Administered 08/01/21 22:30 Dose 4 mg .ROUTE .STK-MED ONE Lab/Rad Data: Laboratory Result Diagrams 08/01/21 21:58 08/01/21 21:58 Laboratory Results 08/01/21 08/01/21 08/01/21 Range/Units 21:58 21:58 21:58 WBC 8.4 (4.0-10.5) K/mm3 RBC 4.36 (4.1-5.4) M/mm3 Hgb 14.0 (12.0-16.0) gm/dl Hct 42.9 (35-47) % MCV 98.4 (78-100) fl MCH 32.1 H (26-32) pg MCHC 32.6 (32-36) g/dl RDW 12.2 (11.5-14.0) % Plt Count 350 (150-450) K/mm3 MPV 9.3 (7.5-11.0) fl Gran % 55.6 (36.0-66.0) % Eos # (Auto) 0.02 (0-0.5) Absolute Lymphs (auto) 3.28 (1.0-4.6) Absolute Monos (auto) 0.43 (0.0-1.3) Lymphocytes % 39.0 (24.0-44.0) % Monocytes % 5.1 (0.0-12.0) % Eosinophils % 0.2 (0.00-5.0) % Basophils % 0.1 (0.0-0.4) % Absolute Granulocytes 4.66 (1.4-6.9) Basophils # 0.01 (0-0.4) Sodium 142 (137-145) mmol/L Potassium 3.5 (3.5-5.1) mmol/L Chloride 101 (98-107) mmol/L Carbon Dioxide 30 (22-30) mmol/L Anion Gap 14.7 (5-15) MEQ/L BUN 8 (7-17) mg/dL Creatinine 0.57 (0.52-1.04) mg/dL Estimated GFR > 60.0 ML/MIN Glucose 112 H (74-106) mg/dL Calcium 9.8 (8.4-10.2) mg/dL Total Bilirubin 0.80 (0.2-1.3) mg/dL AST 20 (14-36) U/L ALT 15 (0-35) U/L Alkaline Phosphatase 63 (38-126) U/L Serum Total Protein 8.0 (6.3-8.2) g/dL Albumin 4.8 (3.5-5.0) g/dL Lipase 50 (23-300) U/L Urine Color (YELLOW) Urine Appearance (CLEAR) Urine pH (5-6) Ur Specific [place] (1.005-1.025) Urine Protein (Negative) Urine Ketones (NEGATIVE) Urine Blood (0-5) [place]/ul Urine Nitrite (NEGATIVE) Urine Bilirubin (NEGATIVE) Urine Urobilinogen (0-1) mg/dL Ur Leukocyte Esterase (NEGATIVE) Urine WBC (Auto) (0-5) /HPF Urine RBC (Auto) (0-2) /HPF U Epithel Cells (Auto) (FEW) /HPF Urine Bacteria (Auto) (NEGATIVE) /HPF Urine Mucus (Auto) (NEGATIVE) /HPF Urine Culture Reflexed (NO) Urine Glucose (NEGATIVE) mg/dL Urine HCG, Qual NEGATIVE (Negative) 08/01/21 Range/Units 21:58 WBC (4.0-10.5) K/mm3 RBC (4.1-5.4) M/mm3 Hgb (12.0-16.0) gm/dl Hct (35-47) % MCV (78-100) fl MCH (26-32) pg MCHC (32-36) g/dl RDW (11.5-14.0) % Plt Count (150-450) K/mm3 MPV (7.5-11.0) fl Gran % (36.0-66.0) % Eos # (Auto) (0-0.5) Absolute Lymphs (auto) (1.0-4.6) Absolute Monos (auto) (0.0-1.3) Lymphocytes % (24.0-44.0) % Monocytes % (0.0-12.0) % Eosinophils % (0.00-5.0) % Basophils % (0.0-0.4) % Absolute Granulocytes (1.4-6.9) Basophils # (0-0.4) Sodium (137-145) mmol/L Potassium (3.5-5.1) mmol/L Chloride (98-107) mmol/L Carbon Dioxide (22-30) mmol/L Anion Gap (5-15) MEQ/L BUN (7-17) mg/dL Creatinine (0.52-1.04) mg/dL Estimated GFR ML/MIN Glucose (74-106) mg/dL Calcium (8.4-10.2) mg/dL Total Bilirubin (0.2-1.3) mg/dL AST (14-36) U/L ALT (0-35) U/L Alkaline Phosphatase (38-126) U/L Serum Total Protein (6.3-8.2) g/dL Albumin (3.5-5.0) g/dL Lipase (23-300) U/L Urine Color SHARIF (YELLOW) Urine Appearance TURBID (CLEAR) Urine pH 5.0 (5-6) Ur Specific [place] 1.026 (1.005-1.025) Urine Protein 30 (Negative) Urine Ketones NEGATIVE (NEGATIVE) Urine Blood NEGATIVE (0-5) [place]/ul Urine Nitrite POSITIVE (NEGATIVE) Urine Bilirubin NEGATIVE (NEGATIVE) Urine Urobilinogen NEGATIVE (0-1) mg/dL Ur Leukocyte Esterase NEGATIVE (NEGATIVE) Urine WBC (Auto) 26-50 (0-5) /HPF Urine RBC (Auto) 3-5 (0-2) /HPF U Epithel Cells (Auto) PACKED (FEW) /HPF Urine Bacteria (Auto) PACKED (NEGATIVE) /HPF Urine Mucus (Auto) SLIGHT (NEGATIVE) /HPF Urine Culture Reflexed YES (NO) Urine Glucose NEGATIVE (NEGATIVE) mg/dL Urine HCG, Qual (Negative) - Progress Progress: improved, pain not gone completely, re-examined Progress Note: 08/01/21 23:53 She is given fluids and symptomatic treatment. Normal white count, grossly unremarkable chemistries. Does have UTI and given dose of Rocephin in here. We will continue with Keflex to go home. CT abdomen pelvis with contrast is negative for any acute findings. Feeling better on reevaluation without any peritoneal signs. She could have some element of viral gastroenteritis and recommended supportive care. Discussed signs symptoms of worsening needing return to ER which she seems understanding. 08/01/21 23:56 Counseled pt/family regarding: lab results, diagnosis, need for follow-up, rad results - Departure Departure Disposition: Home Clinical Impression: Gastroenteritis Urinary tract infection Qualifiers: Urinary tract infection type: site unspecified Hematuria presence: without hematuria Qualified Code(s): N39.0 - Urinary tract infection, site not specified Condition: Stable Critical Care Time: No Referrals: CASSANDRA WICK, PESTICIDE CONTROL INSPECTOR [Primary Care Provider] - Follow Up with PCP/3 days Instructions: Acute Abdomen (Belly Pain), Adult (DC) Additional Instructions: Drink plenty of fluids. Take Tylenol Zofran as needed. Continue with antibiotics. Follow-up with primary care physician for reevaluation. Return to ER for any worsening pain/intractable vomiting/diarrhea/fever chills etc. Prescriptions: Ondansetron ODT 4 MG [Zofran Odt 4 mg] 4 mg PO Q6H PRN PRN #10 tablet PRN Reason: Vomiting Cephalexin Mh 500 mg [Keflex 500 mg] 500 mg PO TID #21 cap
[2021-08-01] MEDS ORDERED: Sodium Chloride 0.9% 1000 ML 1,000 ML ONE (22:29)
[2021-08-01] MEDS ORDERED: Zofran 4 MG/2 ML VIAL ONE (22:29)
[2021-08-01] MEDS ORDERED: Hydromorphone 1 mg/ml Injection ONE (22:29)
[2021-08-01] MEDS ORDERED: ROCEPHIN 2 Gm-D5w 50ML BAG** 2 G/50 ML IVPB IV ONE (22:29)
[2021-08-02 00:03] VITALS: PULSE 75; O2SAT 99
[2021-08-02 00:09] VITALS: BP 125/85
--- NOTE | 2021-08-02 08:44 | XRAY ---
Indication: Right upper quadrant pain, nausea, vomiting, diarrhea, and fever. Multiple contiguous axial images obtained through the abdomen and pelvis using 80 cc Isovue 370 contrast. Comparison: None Lung bases are clear. Heart not enlarged. Noncontrasted stomach and bowel loops appear nonobstructed. Previous appendectomy and hysterectomy. No free fluid/air. Tiny hepatic calcified granuloma and 1 cm right mid renal cyst. Remaining liver, gallbladder, pancreas, spleen, adrenal glands, kidneys, ureters, bladder, and aorta are unremarkable. No pathologic retroperitoneal lymphadenopathy. Osseous structures intact with minimal degenerative changes of the lower lumbar spine. Impression: 1. Incidental tiny hepatic calcified granuloma and small right renal cyst. 2. Remaining CT abdomen/pelvis with contrast exam is negative. The Comment: Preliminary interpretation made by [facility]. No critical discrepancy.
== END 2021-08-02 00:09 | disposition home or self-care (01) ==
LOC: ED 21:38
DX: K52.9 Noninfective gastroenteritis and colitis, unspecified (principal)
CPT/HCPCS: 36000; 36415; 74177; 80053; 81001; 83690; 84703; 85025; 87077; 87086; 87186; 96360; 96374; 96375; 99284; J0696; J1170; J2405

== ENCOUNTER 2021-12-06 16:09 | Emergency (ER) | payer OTHER ==
--- NOTE | 2021-12-06 16:26 | ERPHSYRPT ---
- History of Present Illness Time Seen by Provider: 12/06/21 16:26 Source: patient Exam Limitations: no limitations Physician History: This is a 36-year-old white female who has fixation plates and screws in the left wrist who stated that she recently moved to this area. She had fallen 2 weeks ago and felt pain in her left elbow and left wrist. She was concerned about possible fracture of her left elbow and movement of the fixation plates and screws in her left wrist. Occurred: other (2 weeks ago) Method of Injury: fell Quality: aching Severity of Pain-Max: moderate Severity of Pain-Current: mild Extremities Pain Location: forearm: left, wrist: left Modifying Factors: Improves With: movement Associated Symptoms: none Allergies/Adverse Reactions: citalopram hydrobromide [From Celexa] Allergy (Verified 08/01/21 21:50) ketorolac [From Toradol] Allergy (Verified 08/01/21 21:50) Sulfa (Sulfonamide Antibiotics) Allergy (Verified 08/01/21 21:50) tramadol HCl [From Ultram] Allergy (Verified 08/01/21 21:50) Home Medications: Dextroamphetamine/Amphetamine [Adderall 10 mg Tablet] 20 mg PO BID 11/05/19 [History] Duloxetine HCl 30 mg PO DAILY 08/22/20 [History] Hx Tetanus, Diphtheria Vaccination/Date Given: Yes Hx Influenza Vaccination/Date Given: No Hx Pneumococcal Vaccination/Date Given: No Travel Risk - International Travel Have you traveled outside of the country in past 3 weeks: No - Coronavirus Screening Are you exhibiting any of the following symptoms?: No Close contact with a COVID-19 positive Pt in past 14-21 Days: No - Vaccine Status Have you recieved a Covid-19 vaccination: No - Review of Systems Constitutional: No Symptoms Eyes: No Symptoms Ears, Nose, & Throat: No Symptoms Respiratory: No Symptoms Cardiac: No Symptoms Abdominal/Gastrointestinal: No Symptoms Genitourinary Symptoms: No Symptoms Musculoskeletal: Fall, Injury (Left elbow left wrist) Neurological: No Symptoms Psychological: No Symptoms Endocrine: No Symptoms Hematologic/Lymphatic: No Symptoms Immunological/Allergic: No Symptoms All Other Systems: Reviewed and Negative - Past Medical History Pertinent Past Medical History: Yes Musculoskeletal History: Other Psycho-Social History: Anxiety, Attention Deficit Disorder, Depression Female Reproductive Disorders: Cervical Cancer, Endometriosis Other Medical History: SHOULDER SURGERY X 4 FOR TORN MUSCLES AND SHREDDED IN LEFT SHOULDER ,lupus - Past Surgical History Past Surgical History: Yes Neuro Surgical History: No Pertinent History Cardiac: No Pertinent History Respiratory: No Pertinent History Gastrointestinal: Appendectomy, Exploratory Laparoscopy Musculoskeletal: Orthopedic Surgery Female Surgical History: Hysterectomy, Dilation & Curettage, Section Other Surgical History: left wrist - plate and screws,skin grafting. granulomas removed from lower abdomen. cyst removed from right neck. deviated septum repair. sinus surgery - Social History Smoking Status: Current every day smoker Exposure to second hand smoke: Yes Drug Use: none Patient Lives Alone: No - Nursing Vital Signs Nursing Vital Signs: Initial Vital Signs Temperature 97.2 F 12/06/21 16:23 Pulse Rate 112 H 12/06/21 16:23 Respiratory Rate 20 12/06/21 16:23 Blood Pressure 124/84 12/06/21 16:23 O2 Sat by Pulse Oximetry 99 12/06/21 16:23 Pain Scale Pain Intensity 6 - Physical Exam General Appearance: no apparent distress, alert, anxiety Eyes, Ears, Nose, Throat Exam: normal ENT inspection, moist mucous membranes Neck Exam: normal inspection, non-tender, supple, full range of motion Cardiovascular/Respiratory Exam: chest non-tender, no respiratory distress Abdominal Exam: non-tender Back Exam: normal inspection, normal range of motion, No CVA tenderness, No vertebral tenderness Shoulder Exam: normal inspection, non-tender, no evidence of injury, normal ROM Elbow/Forearm Exam: normal inspection, no evidence of injury, normal ROM, soft tissue tenderness, No deformity Wrist Exam: normal inspection, no evidence of injury, normal ROM, soft tissue tenderness, No deformity Hand Exam: normal inspection, non-tender, no evidence of injury, normal ROM Neuro/Tendon Exam: normal sensation, normal motor functions, normal tendon functions Mental Status Exam: alert, oriented x 3, cooperative Skin Exam: normal color, warm, dry SpO2 Interpretation: normal O2 Delivery: Room Air - Course Nursing assessment & vital signs reviewed: Yes Ordered Tests: Active Orders 24 hr Category Date Time Status ELBOW (MINIMUM 3 VIEWS) Stat Exams 12/06/21 16:28 Completed WRIST (MIN 3 VIEWS) Stat Exams 12/06/21 16:33 Completed - Progress Progress: unchanged, pain not gone completely, re-examined Progress Note: 12/06/21 17:10 X-ray left elbow shows no acute fracture or dislocation. X-ray of left wrist shows an old distal radius fracture with intact fixation plates and screws. Counseled pt/family regarding: need for follow-up, rad results - Departure Departure Disposition: Home Clinical Impression: Left elbow pain, Left wrist pain, Fall Condition: Stable Critical Care Time: No Referrals: CASSANDRA WICK, [employer] [Primary Care Provider] - Follow up/PCP as directed Additional Instructions: Ice pack to area of tenderness 3 times a day for the next 48 hours. Use Tylenol and ibuprofen for pain control. Follow-up with the [facility] orthopedic clinic Saturday through Saturday 8 AM to 10 AM for persistent symptoms.
[2021-12-06 16:28] VITALS: BP 124/84; PULSE 112; O2SAT 99
--- NOTE | 2021-12-06 17:02 | XRAY ---
Indication: Pain following injury 2 weeks ago. Comparison: None 3 view left wrist demonstrates old distal radius fracture with intact anterior fixation plate/screws. No other bony, articular, or soft tissue abnormalities.
--- NOTE | 2021-12-06 17:02 | XRAY ---
Indication: Pain and limited range of motion following injury 2 weeks ago. Comparison: None 3 view left elbow obtained. No bony, articular, or soft tissue abnormalities.
== END 2021-12-06 17:43 | disposition home or self-care (01) ==
LOC: ED 16:09
DX: M25.522 Pain in left elbow (principal); M25.532 Pain in left wrist; W19.XXXA Unspecified fall, initial encounter; Z72.0 Tobacco use; Z79.899 Other long term (current) drug therapy
CPT/HCPCS: 73080; 73110; 99283

== ENCOUNTER 2021-12-25 02:17 | Emergency (ER) | payer OTHER ==
--- NOTE | 2021-12-25 02:22 | ERPHSYRPT ---
- History of Present Illness Time Seen by Provider: 12/25/21 02:22 Historian: patient Exam Limitations: no limitations Physician History: This is a 36-year-old patient of Dr. Shah who presents to the emergency room 2-day history of abdominal pain and right-sided flank pain. She states her abdominal pain is in the right upper quadrant and radiates around and through to her back. Patient is nauseated had some vomiting as well. Patient has had an appendectomy, hysterectomy and sections in the past. Patient has not had a fever. She has no myalgias or arthralgias. She has not had any diarrhea. Timing/Duration: day(s) (2), intermittent, worse Quality: sharpness, stabbing Abdominal Pain Onset Location: RUQ, flank (Right side) Pain Radiation: flank Severity of Pain-Max: moderate Severity of Pain-Current: moderate Associated Symptoms: loss of appetite, nausea, vomiting, No chest pain, No shortness of breath Previous symptoms: no prior history Allergies/Adverse Reactions: citalopram hydrobromide [From Celexa] Allergy (Verified 12/25/21 02:20) ketorolac [From Toradol] Allergy (Verified 12/25/21 02:20) Sulfa (Sulfonamide Antibiotics) Allergy (Verified 12/25/21 02:20) tramadol HCl [From Ultram] Allergy (Verified 12/25/21 02:20) Home Medications: Dextroamphetamine/Amphetamine [Adderall 10 mg Tablet] 20 mg PO BID 11/05/19 [History] Duloxetine HCl 60 mg PO DAILY 08/22/20 [History] Hx Tetanus, Diphtheria Vaccination/Date Given: Yes Hx Influenza Vaccination/Date Given: No Hx Pneumococcal Vaccination/Date Given: No Travel Risk - International Travel Have you traveled outside of the country in past 3 weeks: No - Coronavirus Screening Are you exhibiting any of the following symptoms?: No - Vaccine Status Have you recieved a Covid-19 vaccination: No - Review of Systems Constitutional: No Symptoms Eyes: No Symptoms Ears, Nose, & Throat: No Symptoms Respiratory: No Symptoms Cardiac: No Symptoms Abdominal/Gastrointestinal: Abdominal Pain, Nausea, Vomiting Genitourinary Symptoms: Flank Pain (Right side), No Dysuria, No Frequency Musculoskeletal: No Symptoms Skin: No Symptoms Neurological: No Symptoms Psychological: No Symptoms Endocrine: No Symptoms Hematologic/Lymphatic: No Symptoms Immunological/Allergic: No Symptoms All Other Systems: Reviewed and Negative - Past Medical History Pertinent Past Medical History: Yes Musculoskeletal History: Other Psycho-Social History: Anxiety, Attention Deficit Disorder, Depression Female Reproductive Disorders: Cervical Cancer, Endometriosis Other Medical History: SHOULDER SURGERY X 4 FOR TORN MUSCLES AND SHREDDED IN LEFT SHOULDER ,lupus - Past Surgical History Past Surgical History: Yes Neuro Surgical History: No Pertinent History Cardiac: No Pertinent History Respiratory: No Pertinent History Gastrointestinal: Appendectomy, Exploratory Laparoscopy Musculoskeletal: Orthopedic Surgery Female Surgical History: Hysterectomy, Dilation & Curettage, Section Other Surgical History: left wrist - plate and screws,skin grafting. granulomas removed from lower abdomen. cyst removed from right neck. deviated septum repair. sinus surgery - Social History Smoking Status: Current every day smoker Exposure to second hand smoke: Yes Drug Use: none Patient Lives Alone: No - Nursing Vital Signs Nursing Vital Signs: Initial Vital Signs Temperature 98.2 F 12/25/21 02:24 Pulse Rate 117 H 12/25/21 02:24 Respiratory Rate 14 12/25/21 02:24 Blood Pressure 130/83 12/25/21 02:24 O2 Sat by Pulse Oximetry 98 12/25/21 02:24 Pain Scale Pain Intensity 0 - Physical Exam General Appearance: no apparent distress, alert, anxiety, thin Eye Exam: PERRL/EOMI, eyes nml inspection Ears, Nose, Throat Exam: normal ENT inspection, moist mucous membranes Neck Exam: normal inspection, non-tender, supple, full range of motion Respiratory Exam: normal breath sounds, lungs clear, airway intact, No chest tenderness, No respiratory distress Cardiovascular Exam: regular rate/rhythm, normal heart sounds, normal peripheral pulses Gastrointestinal/Abdomen Exam: soft, normal bowel sounds, tenderness (Right side), guarding (Right side, primarily upper to palpation), No pulsatile mass, No rebound Pelvic Exam: not done Rectal Exam: not done Back Exam: normal inspection, normal range of motion, CVA tenderness (Right side), No vertebral tenderness Extremity Exam: normal inspection, normal range of motion, pelvis stable Neurologic Exam: alert, oriented x 3, cooperative, supervisor sterile processing II-XII nml as tested, nml cerebellar function, nml station & gait, sensation nml Skin Exam: normal color, warm, dry Lymphatic Exam: No adenopathy SpO2 Interpretation: normal O2 Delivery: Room Air - Course Nursing assessment & vital signs reviewed: Yes Ordered Tests: Active Orders 24 hr Category Date Time Status IV Insertion STAT Care 12/25/21 02:35 Active ABDOMEN AND PELVIS W/0 CONTRAS [CT] Stat Exams 12/25/21 02:36 Taken AMYLASE Stat Lab 12/25/21 02:43 Completed CBC W DIFF Stat Lab 12/25/21 02:43 Completed CMP Stat Lab 12/25/21 02:43 Completed CULTURE,URINE Stat Lab 12/25/21 02:38 Received LIPASE Stat Lab 12/25/21 02:43 Completed Lactic Acid Stat Lab 12/25/21 02:35 Completed Medication Summary Discontinued Medications Generic Name Dose Route Start Last Admin Trade Name Freq PRN Reason Stop Dose Admin Hydromorphone HCl 1 mg 12/25/21 02:35 12/25/21 03:12 Hydromorphone 1 Mg/1ml Inj 1 Mg/Ml Syringe IV 12/25/21 02:36 1 mg STAT ONE Administration Hydromorphone HCl Confirm 12/25/21 02:39 Hydromorphone 1 Mg/1ml Inj 1 Mg/Ml Syringe Administered 12/25/21 02:40 Dose 1 mg .ROUTE .STK-MED ONE Sodium Chloride 1,000 mls @ 999 mls/hr 12/25/21 02:35 12/25/21 03:57 Sodium Chloride 0.9% 1000 Ml IV 12/25/21 03:35 Infused .Q1H1M STA Infusion Sodium Chloride Confirm 12/25/21 02:39 Sodium Chloride 0.9% 1000 Ml Administered 12/25/21 02:40 Dose 1,000 mls @ ud .ROUTE .STK-MED ONE Ceftriaxone Sodium/Dextrose 1 g in 50 mls @ 100 mls/hr 12/25/21 04:48 12/25/21 05:29 Rocephin 1 Gm-D5w 50 Ml Bag IV 12/25/21 05:17 Infused STAT STA Infusion Sodium Chloride 1,000 mls @ 999 mls/hr 12/25/21 04:48 12/25/21 05:53 Sodium Chloride 0.9% 1000 Ml IV 12/25/21 05:48 Infused .Q1H1M STA Infusion Sodium Chloride Confirm 12/25/21 04:50 Sodium Chloride 0.9% 1000 Ml Administered 12/25/21 04:51 Dose 1,000 mls @ ud .ROUTE .STK-MED ONE Ceftriaxone Sodium/Dextrose Confirm 12/25/21 04:50 Rocephin 1 Gm-D5w 50 Ml Bag Administered 12/25/21 04:51 Dose 1 g in 50 mls @ ud IV .STK-MED ONE Ondansetron HCl 4 mg 12/25/21 02:35 12/25/21 02:41 Ondansetron Hcl 4 Mg/2 Ml Vial IV 12/25/21 02:36 4 mg STAT ONE Administration Ondansetron HCl Confirm 12/25/21 02:39 Ondansetron Hcl 4 Mg/2 Ml Vial Administered 12/25/21 02:40 Dose 4 mg .ROUTE .STK-MED ONE Prochlorperazine Edisylate 5 mg 12/25/21 03:18 12/25/21 03:19 Prochlorperazine Edisylate 10 Mg/2 Ml Vial IV 12/25/21 03:19 5 mg STAT ONE Administration Prochlorperazine Edisylate Confirm 12/25/21 03:18 Prochlorperazine Edisylate 10 Mg/2 Ml Vial Administered 12/25/21 03:19 Dose 10 mg .ROUTE .STK-MED ONE Lab/Rad Data: Laboratory Result Diagrams 12/25/21 02:43 12/25/21 02:43 Laboratory Results 12/25/21 12/25/21 12/25/21 Range/Units 02:43 02:43 02:38 WBC 7.9 (4.0-10.5) K/mm3 RBC 3.73 L (4.1-5.4) M/mm3 Hgb 11.8 L (12.0-16.0) gm/dl Hct 35.3 (35-47) % MCV 94.6 (78-100) fl MCH 31.6 (26-32) pg MCHC 33.4 (32-36) g/dl RDW 12.3 (11.5-14.0) % Plt Count 224 (150-450) K/mm3 MPV 9.6 (7.5-11.0) fl Gran % 55.7 (36.0-66.0) % Eos # (Auto) 0.07 (0-0.5) Absolute Lymphs (auto) 2.92 (1.0-4.6) Absolute Monos (auto) 0.50 (0.0-1.3) Lymphocytes % 37.0 (24.0-44.0) % Monocytes % 6.3 (0.0-12.0) % Eosinophils % 0.9 (0.00-5.0) % Basophils % 0.1 (0.0-0.4) % Absolute Granulocytes 4.39 (1.4-6.9) Basophils # 0.01 (0-0.4) Sodium 141 (137-145) mmol/L Potassium 3.6 (3.5-5.1) mmol/L Chloride 108 H (98-107) mmol/L Carbon Dioxide 25 (22-30) mmol/L Anion Gap 12.0 (5-15) MEQ/L BUN 22 H (7-17) mg/dL Creatinine 0.60 (0.52-1.04) mg/dL Estimated GFR > 60.0 ML/MIN Glucose 106 (74-106) mg/dL Lactic Acid (0.4-2.0) Calcium 8.9 (8.4-10.2) mg/dL Total Bilirubin 1.20 (0.2-1.3) mg/dL AST 19 (14-36) U/L ALT 11 (0-35) U/L Alkaline Phosphatase 70 (38-126) U/L Serum Total Protein 6.6 (6.3-8.2) g/dL Albumin 3.9 (3.5-5.0) g/dL Amylase 40 (30-110) U/L Lipase 40 (23-300) U/L Urinalys Dipstick Clnc MAIN LAB Urine Color YELLOW (YELLOW) Urine Appearance SLIGHTLY CLOUDY (CLEAR) Urine pH 5.0 (5-6) Ur Specific Kaiser >=1.030 (1.005-1.025) Urine Protein Cancelled POC Urine Protein Conf 30 (Negative) Urine Ketones Cancelled Urine Blood Cancelled Urine Nitrite POSITIVE (NEGATIVE) Urine Bilirubin Cancelled Urine Urobilinogen Cancelled Ur Leukocyte Esterase Cancelled Urine Leukocytes NEGATIVE (NEGATIVE) Urine WBC (Auto) 3-5 (0-5) /HPF Urine RBC (Auto) 0-2 (0-2) /HPF U Epithel Cells (Auto) RARE (FEW) /HPF Urine Bacteria (Auto) FEW (NEGATIVE) /HPF Urine RBC NEGATIVE (0-5) Bassam/ul U Non-Squamous Epi Cells Cancelled Urine Mucus (Auto) SLIGHT (NEGATIVE) /HPF Ur Culture Indicated? YES Urine Culture Reflexed Cancelled Urine Glucose NEGATIVE (NEGATIVE) mg/dL 12/25/21 Range/Units 02:35 WBC (4.0-10.5) K/mm3 RBC (4.1-5.4) M/mm3 Hgb (12.0-16.0) gm/dl Hct (35-47) % MCV (78-100) fl MCH (26-32) pg MCHC (32-36) g/dl RDW (11.5-14.0) % Plt Count (150-450) K/mm3 MPV (7.5-11.0) fl Gran % (36.0-66.0) % Eos # (Auto) (0-0.5) Absolute Lymphs (auto) (1.0-4.6) Absolute Monos (auto) (0.0-1.3) Lymphocytes % (24.0-44.0) % Monocytes % (0.0-12.0) % Eosinophils % (0.00-5.0) % Basophils % (0.0-0.4) % Absolute Granulocytes (1.4-6.9) Basophils # (0-0.4) Sodium (137-145) mmol/L Potassium (3.5-5.1) mmol/L Chloride (98-107) mmol/L Carbon Dioxide (22-30) mmol/L Anion Gap (5-15) MEQ/L BUN (7-17) mg/dL Creatinine (0.52-1.04) mg/dL Estimated GFR ML/MIN Glucose (74-106) mg/dL Lactic Acid 0.5 (0.4-2.0) Calcium (8.4-10.2) mg/dL Total Bilirubin (0.2-1.3) mg/dL AST (14-36) U/L ALT (0-35) U/L Alkaline Phosphatase (38-126) U/L Serum Total Protein (6.3-8.2) g/dL Albumin (3.5-5.0) g/dL Amylase (30-110) U/L Lipase (23-300) U/L Urinalys Dipstick Clnc Urine Color (YELLOW) Urine Appearance (CLEAR) Urine pH (5-6) Ur Specific Kaiser (1.005-1.025) Urine Protein POC Urine Protein Conf (Negative) Urine Ketones Urine Blood Urine Nitrite (NEGATIVE) Urine Bilirubin Urine Urobilinogen Ur Leukocyte Esterase Urine Leukocytes (NEGATIVE) Urine WBC (Auto) (0-5) /HPF Urine RBC (Auto) (0-2) /HPF U Epithel Cells (Auto) (FEW) /HPF Urine Bacteria (Auto) (NEGATIVE) /HPF Urine RBC (0-5) Bassam/ul U Non-Squamous Epi Cells Urine Mucus (Auto) (NEGATIVE) /HPF Ur Culture Indicated? Urine Culture Reflexed Urine Glucose (NEGATIVE) mg/dL - Progress Progress: improved, re-examined Progress Note: 12/25/21 06:20 CAT scan of the abdomen pelvis without contrast shows no acute intra-abdominal or intrapelvic findings Counseled pt/family regarding: lab results, diagnosis, need for follow-up, rad results - Departure Departure Disposition: Home Clinical Impression: Abdominal pain, UTI (urinary tract infection), Dehydration Condition: Stable Critical Care Time: No Referrals: SHANTA SHAH MD [Primary Care Provider] - Follow up/PCP as directed Additional Instructions: Drink plenty of clear liquids before advancing your diet. Take your medication as prescribed. Follow-up with your primary care physician for further management. Prescriptions: Ondansetron ODT 4 MG [Zofran Odt 4 mg] 4 mg PO Q6H PRN PRN #10 tablet PRN Reason: Vomiting Hydrocodone/APAP 5/325 [[place] 5/325 mg] 1 each PO Q8H PRN PRN #6 tablet MDD 3 PRN Reason: Pain Ciprofloxacin [Cipro 500 MG] 500 mg PO BID #14 tablet
[2021-12-25] MEDS ORDERED: Sodium Chloride 0.9% 1000 ML 1,000 ML IV STA ×2 (02:35→04:48)
[2021-12-25] MEDS ORDERED: Hydromorphone 1 mg/ml Injection IV ONE (02:35)
[2021-12-25] MEDS ORDERED: Zofran 4 MG/2 ML VIAL IV ONE (02:35)
[2021-12-25] MEDS ORDERED: Zofran 4 MG/2 ML VIAL ONE (02:39)
[2021-12-25] MEDS ORDERED: Hydromorphone 1 mg/ml Injection ONE (02:39)
[2021-12-25] MEDS ORDERED: Sodium Chloride 0.9% 1000 ML 1,000 ML ONE ×2 (02:39→04:50)
[2021-12-25 02:45] LABS: Dipstick done @ ? MAIN LAB
[2021-12-25 02:49] LABS: Absolute Neutrophil Ct (ANC) 4.39 (1.4-6.9); Basophil (Absolute #) 0.01 (0-0.4); Eosinophil % 0.9 % (0.00-5.0); Eosinophil (Absolute #) 0.07 (0-0.5); Hematocrit 35.3 % (35-47); Hemoglobin 11.8 gm/dl (12.0-16.0); Lymphocyte (Absolute #) 2.92 (1.0-4.6); Mean Cell Volume 94.6 fl (78-100); Mean Corpuscular Hemoglobin 31.6 pg (26-32); Mean Corpuscular Hgb Concent. 33.4 g/dl (32-36); Mean Platelet Volume 9.6 fl (7.5-11.0); Monocytes % 6.3 % (0.0-12.0); Neutrophil % 55.7 % (36.0-66.0); Platelet Count 224 K/mm3 (150-450); Red Blood Count 3.73 M/mm3 (4.1-5.4); Red Cell Distribution Width 12.3 % (11.5-14.0); White Blood Count 7.9 K/mm3 (4.0-10.5)
[2021-12-25 02:55] LABS: Bacteria FEW /HPF (NEGATIVE); Epithelial Cells RARE /HPF (FEW); Mucus SLIGHT /HPF (NEGATIVE); RBC 0-2 /HPF (0-2)
[2021-12-25 02:57] LABS: Appearance SLIGHTLY CLOUDY (CLEAR); Bilirubin SMALL (NEGATIVE); Glucose NEGATIVE (NEGATIVE); Ketones TRACE (NEGATIVE); Nitrite POSITIVE (NEGATIVE); Protein,Urine Dip 30 (Negative); RBC NEGATIVE Ery/ul (0-5); Specific Gravity >=1.030 (1.005-1.025); Urobilinogen 0.2 mg/dL (0-1)
[2021-12-25 03:01] LABS: ALBUMIN 3.9 g/dL (3.5-5.0); ALKALINE PHOSPHATASE 70 U/L (38-126); AMYLASE 40 U/L (30-110); BLOOD UREA NITROGEN 22 mg/dL (7-17); CHLORIDE 108 mmol/L (98-107); Calcium 8.9 mg/dL (8.4-10.2); Carbon Dioxide 25 mmol/L (22-30); EST GLOMERULAR FILTRATION RATE > 60.0 ML/MIN; Glucose 106 mg/dL (74-106); LIPASE 40 U/L (23-300); Potassium 3.6 mmol/L (3.5-5.1); SGOT/AST 19 U/L (14-36); SGPT/ALT 11 U/L (0-35); SODIUM 141 mmol/L (137-145); Total Protein 6.6 g/dL (6.3-8.2)
[2021-12-25] MEDS ORDERED: Compazine 10 MG/2 ML IV ONE (03:18)
[2021-12-25] MEDS ORDERED: Compazine 10 MG/2 ML ONE (03:18)
[2021-12-25] MEDS ORDERED: ROCEPHIN 1 Gm-D5w 50 ml Bag** 1 G/50 ML IVPB IV STA (04:48)
[2021-12-25] MEDS ORDERED: ROCEPHIN 1 Gm-D5w 50 ml Bag** 1 G/50 ML IVPB IV ONE (04:50)
[2021-12-25 06:06] VITALS: O2SAT 98
[2021-12-25 06:29] VITALS: BP 129/90; PULSE 82
--- NOTE | 2021-12-25 09:10 | XRAY ---
Indication: Right flank pain. Multiple contiguous axial images obtained through the abdomen and pelvis without contrast. Comparison: August 01, 2021 Lung bases remain clear. Heart not enlarged. Stomach is mildly distended with food/fluid. Radiopacities in the: Presumed ingested medication/bismuth versus barium. Stomach and bowel loops appear nonobstructed. Appendectomy and hysterectomy reported. No free fluid/air. Again a few hepatic calcified granulomas and 1 cm right mid renal cortical cyst. Remaining liver, gallbladder, pancreas, spleen, adrenal glands, kidneys, ureters, bladder, and aorta are unremarkable for noncontrast exam. Osseous structures intact again with minimal degenerative changes of the inferior lumbar spine. Impression: 1. Again incidental hepatic calcified granulomas and small right renal cyst. 2. Remaining CT abdomen/pelvis without contrast exam is negative. Comment: Preliminary interpretation by [facility]. No critical discrepancy.
== END 2021-12-25 06:36 | disposition home or self-care (01) ==
LOC: ED 02:17
DX: N39.0 Urinary tract infection, site not specified (principal); R10.11 Right upper quadrant pain; E86.0 Dehydration; R11.2 Nausea with vomiting, unspecified; Z72.0 Tobacco use; Z79.891 Long term (current) use of opiate analgesic
CPT/HCPCS: 36000; 36415; 74176; 80053; 81015; 82150; 83605; 83690; 85025; 87077; 87086; 87186; 96360; 96365; 96374; 96375; 99284; J0696; J1170; J2405

== ENCOUNTER 2022-02-21 22:34 | Emergency (ER) | payer OTHER ==
[2022-02-21] MEDS ORDERED: Hydromorphone 1 mg/ml Injection IM ONE (23:25)
[2022-02-21] MEDS ORDERED: DECADRON 10MG INJ. IM ONE (23:26)
[2022-02-21] MEDS ORDERED: DECADRON 10MG INJ. ONE (23:33)
[2022-02-21] MEDS ORDERED: Hydromorphone 1 mg/ml Injection ONE (23:33)
--- NOTE | 2022-02-21 23:39 | ERPHSYRPT ---
- History of Present Illness Time Seen by Provider: 02/21/22 23:25 Historian: patient Exam Limitations: no limitations Patient Subjective Stated Complaint: pt states she has been having back pain for 1 week. pain has been exacerbated today when she staes " i was lifting a bunch of concrete on a shovel today, the pain goes down my side from my back on the right side. Triage Nursing Assessment: pt states pain in back 06/16 Physician History: Patient's been having right-sided back pain Timing/Duration: week(s) (one) Activities at Onset: activity Quality: aching, stabbing Abdominal Pain Onset Location: other (no abdominal pain) Severity of Pain-Max: severe Severity of Pain-Current: severe Modifying Factors: Improves With: nothing Associated Symptoms: back, No chest pain, No diaphoresis, No diarrhea, No fever/chills, No fatigue, No headache, No loss of appetite, No nausea, No neck pain, No rash, No shortness of breath, No syncope, No vomiting, No weakness Previous symptoms: same symptoms as today, recently seen, recently treated (5 days ago seen by her chiropractor who tried manipulation without relief of her symptoms) Allergies/Adverse Reactions: citalopram hydrobromide [From Celexa] Allergy (Verified 12/25/21 02:20) ketorolac [From Toradol] Allergy (Verified 12/25/21 02:20) Sulfa (Sulfonamide Antibiotics) Allergy (Verified 12/25/21 02:20) tramadol HCl [From Ultram] Allergy (Verified 12/25/21 02:20) Home Medications: Dextroamphetamine/Amphetamine [Adderall 10 mg Tablet] 20 mg PO BID 11/05/19 [History] Duloxetine HCl 60 mg PO DAILY 08/22/20 [History] Hx Tetanus, Diphtheria Vaccination/Date Given: No Hx Influenza Vaccination/Date Given: No Hx Pneumococcal Vaccination/Date Given: No Immunizations Up to Date: No Travel Risk - International Travel Have you traveled outside of the country in past 3 weeks: No - Coronavirus Screening Are you exhibiting any of the following symptoms?: No Symptoms: Fever Close contact with a COVID-19 positive Pt in past 14-21 Days: No - Vaccine Status Have you recieved a Covid-19 vaccination: No - Review of Systems Constitutional: No Fever, No Chills Eyes: No Symptoms, No Eye Pain, No Eye Redness Ears, Nose, & Throat: No Symptoms Respiratory: No Cough, No Dyspnea Cardiac: No Chest Pain, No Edema, No Syncope Abdominal/Gastrointestinal: No Abdominal Pain, No Nausea, No Vomiting, No Diarrhea Genitourinary Symptoms: No Dysuria, No Hematuria, No Flank Pain Musculoskeletal: Back Pain, No Neck Pain Skin: No Cellulitis, No Pruritis, No Rash Neurological: No Dizziness, No Focal Weakness, No Headache, No Sensory Changes Psychological: No Symptoms, No Anxiety Endocrine: No Symptoms, No Polydipsia Hematologic/Lymphatic: No Easy Bleeding, No Easy Bruising All Other Systems: Reviewed and Negative - Past Medical History Pertinent Past Medical History: Yes Musculoskeletal History: Other Psycho-Social History: Anxiety, Attention Deficit Disorder, Depression Female Reproductive Disorders: Cervical Cancer, Endometriosis Other Medical History: SHOULDER SURGERY X 4 FOR TORN MUSCLES AND SHREDDED IN LEFT SHOULDER ,lupus - Past Surgical History Past Surgical History: Yes Neuro Surgical History: No Pertinent History Cardiac: No Pertinent History Respiratory: No Pertinent History Gastrointestinal: Appendectomy, Exploratory Laparoscopy Musculoskeletal: Orthopedic Surgery Female Surgical History: Hysterectomy, Dilation & Curettage, Section Other Surgical History: left wrist - plate and screws,skin grafting. granulomas removed from lower abdomen. cyst removed from right neck. deviated septum repair. sinus surgery - Social History Smoking Status: Current every day smoker Exposure to second hand smoke: Yes Drug Use: none Patient Lives Alone: No - Female History Hx Last Menstrual Period: hysterectomy Hx Now: No - Nursing Vital Signs Nursing Vital Signs: Initial Vital Signs Pulse Rate 88 02/21/22 23:18 Respiratory Rate 18 02/21/22 23:18 Blood Pressure 144/76 02/21/22 23:18 O2 Sat by Pulse Oximetry 98 02/21/22 23:18 Pain Scale Pain Intensity 5 - Physical Exam General Appearance: no apparent distress, alert Eye Exam: PERRL/EOMI, eyes nml inspection, No scleral icterus, No pale conjunctivae Ears, Nose, Throat Exam: normal ENT inspection, pharynx normal, moist mucous membranes Neck Exam: normal inspection, non-tender, supple, full range of motion Respiratory Exam: normal breath sounds, lungs clear, No respiratory distress Cardiovascular Exam: regular rate/rhythm, normal heart sounds, capillary refill <2 sec Gastrointestinal/Abdomen Exam: soft, normal bowel sounds, No tenderness, No distention, No mass, No guarding Rectal Exam: deferred Back Exam: normal inspection, normal range of motion, other (tenderness at the right SI joint area; examination chaperoned by Magdalena Dewey RN), No CVA tenderness, No vertebral tenderness Extremity Exam: normal inspection, normal range of motion, pelvis stable Neurologic Exam: alert, oriented x 3, 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, 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, normal mood/affect, nml cerebellar function, sensation nml, No motor deficits Skin Exam: normal color, warm, dry, No rash, No jaundice, No cyanosis SpO2 Interpretation: normal SpO2: 98 O2 Delivery: Room Air - Course Nursing assessment & vital signs reviewed: Yes - Radiology Exams Other X-ray Interpretation: Interpreted by me, Reviewed by me, No Fracture, No Subluxation, Other (left ASIS appears higher than right ASIS) L-Spine X-ray Interpretation: Interpreted by me, Reviewed by me, No Fracture, No Subluxation, Nml Alignment, Other (L4-L5 and L5-S1 foramen narrowing from facet arthropathy) Ordered Tests: Active Orders 24 hr Category Date Time Status LUMBAR COMPLETE (MIN 4 VIEWS) Stat Exams 02/21/22 00:09 Taken SACRUM AND COCCYX Stat Exams 02/21/22 00:08 Taken Medication Summary Discontinued Medications Generic Name Dose Route Start Last Admin Trade Name Freq PRN Reason Stop Dose Admin Dexamethasone Sodium Phosphate 10 mg 02/21/22 23:26 02/21/22 23:35 Dexamethasone Sod Phosphate 10 Mg/Ml IM 02/21/22 23:27 10 mg STAT ONE Administration Dexamethasone Sodium Phosphate Confirm 02/21/22 23:33 Dexamethasone Sod Phosphate 10 Mg/Ml Administered 02/21/22 23:34 Dose 10 mg .ROUTE .STK-MED ONE Hydromorphone HCl 1 mg 02/21/22 23:25 02/21/22 23:36 Hydromorphone 1 Mg/1ml Inj 1 Mg/Ml Syringe IM 02/21/22 23:26 1 mg STAT ONE Administration Hydromorphone HCl Confirm 02/21/22 23:33 Hydromorphone 1 Mg/1ml Inj 1 Mg/Ml Syringe Administered 02/21/22 23:34 Dose 1 mg .ROUTE .STK-MED ONE - Progress Progress: improved Progress Note: 02/22/22 00:59 Patient's pain has improved but not completely resolved. Patient has no focal neurologic deficits in lower extremities. I reviewed with her findings on her x-rays of lumbar spine and sacroiliac joints that may be explaining her symptoms with exacerbation by her overuse activity today. Patient be sent home with a Medrol Dosepak and a short supply of [place] to help with symptom relief to get her back to her chiropractor or primary care physician discussed other physical therapy training/referral or any other specialist referral needed. Patient does not require immediate transfer to facility with neurosurgical or orthopedic spine surgical coverage as she has no focal neurologic deficits or concerning symptoms and no signs of fracture dislocation on x-ray imaging and is neurovascular intact on examination. Counseled pt/family regarding: diagnosis, need for follow-up, rad results - Departure Departure Disposition: Home Clinical Impression: Acute low back pain, Right lumbar radiculopathy, Sacroiliac joint dysfunction of right side, Foraminal stenosis of lumbosacral region, Elevated blood pressure reading without diagnosis of hypertension Condition: Good Critical Care Time: No Referrals: DOCTOR,NO FAMILY [NON-STAFF PHY W/O PRIVILEGES] - Follow up/PCP as directed Instructions: Low Back Pain (DC), Sciatica (DC) Additional Instructions: Return to the nearest emergency department if he have any worsening back pain, loss of bowel or bladder control, urinary retention, diarrhea cannot control, n umbness pulmonary sit up on, symptoms going down both legs, new weakness in 1 leg or both legs, new loss of sensation in either leg, new blood in urine, new blood in her stool, new upper back pain, new shortness of breath, new chest pain or any other concerning signs or symptoms that were not present at today's emergency department visit for immediate reevaluation in the nearest emergency department Prescriptions: Hydrocodone/Acetaminophen [Hydrocodone-Acetamin 5-325 mg] 1 each PO Q6HPRN PRN #10 tablet MDD 4 PRN Reason: Pain Methylprednisolone Packet [Medrol Dosepack] 4 mg PO UD #1 packet
[2022-02-22 00:15] VITALS: O2SAT 98
[2022-02-22 01:09] VITALS: BP 144/88; PULSE 90
--- NOTE | 2022-02-22 08:58 | XRAY ---
Indication: Low back, pelvic, and right hip pain. Comparison: None 3 view sacrum/coccyx demonstrates mild scattered colonic fecal debris and right lower quadrant suture material. No other bony, articular, or soft tissue abnormalities. Lumbar spine reported separately.
--- NOTE | 2022-02-22 08:58 | XRAY ---
Indication: Low back, pelvic, and right hip pain. Comparison: None 5 view lumbar spine demonstrates 5 lumbar segments in normal alignment with minimal/mild L3-L5 degenerative disc space narrowing with endplate spurring/sclerosis. CT proven tiny hepatic calcified granuloma. Mild diffuse scattered colonic fecal debris. No other bony, articular, or soft tissue abnormalities. Impression: Mild fecal stasis, L3-L5 degenerative spondylosis, and hepatic calcified granuloma.
== END 2022-02-22 01:30 | disposition home or self-care (01) ==
LOC: ED 22:34
DX: M54.50 Low back pain, unspecified (principal); M54.16 Radiculopathy, lumbar region; M46.1 Sacroiliitis, not elsewhere classified; M48.07 Spinal stenosis, lumbosacral region; R03.0 Elevated blood-pressure reading, without diagnosis of hypertension; Z72.0 Tobacco use; Z79.891 Long term (current) use of opiate analgesic; Z79.52 Long term (current) use of systemic steroids; Z79.899 Other long term (current) drug therapy
CPT/HCPCS: 72110; 72220; 96372; 99284; J1100; J1170

== ENCOUNTER 2022-04-05 18:31 | Emergency (ER) | payer OTHER ==
[2022-04-05 18:39] VITALS: BP 130/77
--- NOTE | 2022-04-05 19:01 | ERPHSYRPT ---
- History of Present Illness Source: patient Exam Limitations: no limitations Patient Subjective Stated Complaint: PT states "I smashed my right wrist in a machine that compacts rock and sand." Triage Nursing Assessment: Pt presented alert and oriented X 3, skin pwd. PT am bulates with an upright steady gait, able to speak in clear full sentences pt holding her right wrist with her left hand, no swelling or bruising noted. Physician History: 36 yo wf w R wrist pain since getting it crushed at work today. Pt is R handed and denies previous/other injuries. Occurred: other (Earlier today at work) Method of Injury: direct blow Quality: constant Severity of Pain-Max: moderate Severity of Pain-Current: moderate Extremities Pain Location: wrist: right Modifying Factors: Improves With: nothing, movement Associated Symptoms: none Allergies/Adverse Reactions: citalopram hydrobromide [From Celexa] Allergy (Verified 12/25/21 02:20) ketorolac [From Toradol] Allergy (Verified 12/25/21 02:20) Sulfa (Sulfonamide Antibiotics) Allergy (Verified 12/25/21 02:20) tramadol HCl [From Ultram] Allergy (Verified 12/25/21 02:20) Home Medications: Dextroamphetamine/Amphetamine [Adderall 10 mg Tablet] 20 mg PO BID 11/05/19 [History] Hx Tetanus, Diphtheria Vaccination/Date Given: No Hx Influenza Vaccination/Date Given: No Hx Pneumococcal Vaccination/Date Given: No Immunizations Up to Date: Yes Travel Risk - International Travel Have you traveled outside of the country in past 3 weeks: No - Coronavirus Screening Are you exhibiting any of the following symptoms?: No Close contact with a COVID-19 positive Pt in past 14-21 Days: No - Vaccine Status Have you recieved a Covid-19 vaccination: No - Review of Systems Constitutional: No Symptoms Eyes: No Symptoms Ears, Nose, & Throat: No Symptoms Respiratory: No Symptoms Cardiac: No Symptoms Abdominal/Gastrointestinal: No Symptoms Genitourinary Symptoms: No Symptoms Skin: No Symptoms Neurological: No Symptoms Psychological: No Symptoms, Hallucinations Hematologic/Lymphatic: No Symptoms Immunological/Allergic: No Symptoms - Past Medical History Pertinent Past Medical History: Yes Musculoskeletal History: Other Psycho-Social History: Anxiety, Attention Deficit Disorder, Depression Female Reproductive Disorders: Cervical Cancer, Endometriosis Other Medical History: SHOULDER SURGERY X 4 FOR TORN MUSCLES AND SHREDDED IN LEFT SHOULDER ,lupus - Past Surgical History Past Surgical History: Yes Neuro Surgical History: No Pertinent History Cardiac: No Pertinent History Respiratory: No Pertinent History Gastrointestinal: Appendectomy, Exploratory Laparoscopy Musculoskeletal: Orthopedic Surgery Female Surgical History: Hysterectomy, Dilation & Curettage, Section Other Surgical History: left wrist - plate and screws,skin grafting. granulomas removed from lower abdomen. cyst removed from right neck. deviated septum repair. sinus surgery - Social History Smoking Status: Current every day smoker Exposure to second hand smoke: Yes Drug Use: none Patient Lives Alone: No Significant Family History: no pertinent family hx - Female History Hx Last Menstrual Period: hysterectomy Hx Now: No - Nursing Vital Signs Nursing Vital Signs: Initial Vital Signs Temperature 98.8 F 04/05/22 18:35 Pulse Rate 93 H 04/05/22 18:35 Respiratory Rate 20 04/05/22 18:35 Blood Pressure 130/77 04/05/22 18:35 O2 Sat by Pulse Oximetry 98 04/05/22 18:35 Pain Scale Pain Intensity 8 WNL - Physical Exam General Appearance: no apparent distress Eyes, Ears, Nose, Throat Exam: normal ENT inspection, TMs normal, pharynx normal, moist mucous membranes Neck Exam: normal inspection, non-tender (C-spine NTTP) Cardiovascular/Respiratory Exam: normal breath sounds, regular rate/rhythm, heart sounds normal Abdominal Exam: non-tender, soft Back Exam: normal inspection (No T or L-spine TTP) Shoulder Exam: normal inspection Elbow/Forearm Exam: normal inspection Wrist Exam: bone tenderness (R wrist TTP distal radius/No edema/no erythema/no ecchymosis/Good radial pulse, distal sensation, and capillary return) Hand Exam: normal inspection, non-tender, no evidence of injury, normal ROM DTR - Upper Extremity Exam: bicep (R): 2+, bicep (L): 2+ Neuro/Tendon Exam: normal sensation, normal motor functions, normal tendon functions, responds to pain Mental Status Exam: alert, oriented x 3, cooperative Skin Exam: normal color, warm, dry SpO2 Interpretation: normal SpO2: 98 O2 Delivery: Room Air - Course Nursing assessment & vital signs reviewed: Yes - Radiology Exams Wrist X-ray Interpretation: Interpreted by me (R wrist negative) Ordered Tests: Active Orders 24 hr Category Date Time Status Aldo Bandage Application -[facility] STAT Care 04/05/22 19:15 Completed WRIST (MIN 3 VIEWS) Stat Exams 04/05/22 19:08 Taken - Progress Progress Note: 04/05/22 19:16 Aldo wrap R wrist per nursing/NVI Counseled pt/family regarding: diagnosis, need for follow-up, rad results - Departure Departure Disposition: Home Clinical Impression: Contusion of wrist, right Condition: Stable Critical Care Time: No Referrals: SHANTA SHAH MD [Primary Care Provider] - Follow up/PCP as directed Instructions: Wrist Sprain (DC) Additional Instructions: Aldo wrap for 2-3 days Ice for 12-24 hours Tylenol for pain
[2022-04-05 19:33] VITALS: PULSE 83
[2022-04-05 20:38] VITALS: O2SAT 98
--- NOTE | 2022-04-08 14:44 | XRAY ---
Exam: 3 views of the right wrist. Comparison: None of the right wrist. Indication: Smashed right wrist in machine at work; pain. Findings: AP, oblique, and lateral images of the right wrist were obtained. I see no acute fracture or dislocation. Joint spaces appear unremarkable. No other focal bone lesion is seen. No abnormal periarticular soft tissue calcifications are seen. The remainder of the soft tissues appear unremarkable. Impression: 1. No acute fracture or dislocation of the right wrist is seen.
== END 2022-04-05 19:33 | disposition home or self-care (01) ==
LOC: ED 18:31
DX: S60.211A Contusion of right wrist, initial encounter (principal); W31.82XA Contact with other commercial machinery, initial encounter; Y99.0 Civilian activity done for income or pay; M25.531 Pain in right wrist; Z72.0 Tobacco use; Z28.310 Unvaccinated for COVID-19
CPT/HCPCS: 73110; 99283

== ENCOUNTER 2022-07-05 22:53 | Emergency (ER) | payer OTHER ==
[2022-07-06] MEDS ORDERED: MORPHINE SULFATE 4 MG INJ IV ONE (00:13)
[2022-07-06] MEDS ORDERED: Zofran 4 MG/2 ML VIAL IV ONE (00:13)
[2022-07-06] MEDS ORDERED: Sodium Chloride 0.9% 1000 ML 1,000 ML IV STA (00:13)
--- NOTE | 2022-07-06 00:18 | ERPHSYRPT ---
- History of Present Illness Time Seen by Provider: 07/05/22 22:58 Historian: patient Exam Limitations: no limitations Patient Subjective Stated Complaint: pt states "I have this pain that goes from my stomach to my back. I think I may also have pink eye." Triage Nursing Assessment: pt ambulated into the er; pt is axo x4; c/o rt flank pain; pt states 8/10 pain to RLQ/rt flank region; pt c/o pain to left eye; abd is soft, flat, nontender; active bowel sounds in all quads; pt denies V/D; c/o N; vital wnl; skin PDW Physician History: 36-year-old female with history of kidney stones presented in the ER with chief complaint of bilateral flank pain more on the right side with radiation to the right groin without associated nausea vomiting diarrhea. Patient does report having some difficulty urination with increased frequency, urgency and hematuria. No fever or chills reported. Timing/Duration: day(s) (3), gradual onset, worse Activities at Onset: rest Quality: sharpness Abdominal Pain Onset Location: flank Pain Radiation: groin Severity of Pain-Max: severe Severity of Pain-Current: moderate Modifying Factors: Improves With: nothing Associated Symptoms: denies symptoms Previous symptoms: same symptoms as today Allergies/Adverse Reactions: citalopram hydrobromide [From Celexa] Allergy (Verified 07/05/22 23:55) ketorolac [From Toradol] Allergy (Verified 07/05/22 23:55) Sulfa (Sulfonamide Antibiotics) Allergy (Verified 07/05/22 23:55) tramadol HCl [From Ultram] Allergy (Verified 07/05/22 23:55) Home Medications: Dextroamphetamine/Amphetamine [Adderall 10 mg Tablet] 20 mg PO BID 11/05/19 [History] Hx Tetanus, Diphtheria Vaccination/Date Given: Yes Hx Influenza Vaccination/Date Given: No Hx Pneumococcal Vaccination/Date Given: No Immunizations Up to Date: Yes Travel Risk - International Travel Have you traveled outside of the country in past 3 weeks: No - Coronavirus Screening Are you exhibiting any of the following symptoms?: No Close contact with a COVID-19 positive Pt in past 14-21 Days: No - Vaccine Status Have you recieved a Covid-19 vaccination: No - Review of Systems Constitutional: No Symptoms Eyes: Itchy Ears, Nose, & Throat: No Symptoms Respiratory: No Symptoms Cardiac: No Symptoms Abdominal/Gastrointestinal: Abdominal Pain Genitourinary Symptoms: Dysuria, Frequency, Hematuria, Urgency Musculoskeletal: No Symptoms Neurological: No Symptoms Psychological: No Symptoms Endocrine: No Symptoms Hematologic/Lymphatic: No Symptoms Immunological/Allergic: No Symptoms - Past Medical History Pertinent Past Medical History: Yes Musculoskeletal History: Other Psycho-Social History: Anxiety, Attention Deficit Disorder, Depression Female Reproductive Disorders: Cervical Cancer, Endometriosis Other Medical History: SHOULDER SURGERY X 4 FOR TORN MUSCLES AND SHREDDED IN LEFT SHOULDER ,lupus - Past Surgical History Past Surgical History: Yes Neuro Surgical History: No Pertinent History Cardiac: No Pertinent History Respiratory: No Pertinent History Gastrointestinal: Appendectomy, Exploratory Laparoscopy Musculoskeletal: Orthopedic Surgery Female Surgical History: Hysterectomy, Dilation & Curettage, Section Other Surgical History: left wrist - plate and screws,skin grafting. granulomas removed from lower abdomen. cyst removed from right neck. deviated septum repair. sinus surgery - Social History Smoking Status: Former smoker Exposure to second hand smoke: Yes Drug Use: none Patient Lives Alone: No Significant Family History: no pertinent family hx - Female History Hx Now: (Unknown) - Nursing Vital Signs Nursing Vital Signs: Initial Vital Signs Temperature 97 F 07/05/22 23:53 Pulse Rate 75 07/05/22 23:53 Respiratory Rate 18 07/05/22 23:53 Blood Pressure 115/93 07/05/22 23:53 O2 Sat by Pulse Oximetry 100 07/05/22 23:53 Pain Scale Pain Intensity 4 - Physical Exam General Appearance: no apparent distress, alert Eye Exam: PERRL/EOMI, eyes nml inspection, No scleral icterus, No pale conjunctivae Ears, Nose, Throat Exam: normal ENT inspection, TMs normal, pharynx normal Neck Exam: normal inspection, supple, full range of motion Respiratory Exam: normal breath sounds, lungs clear Cardiovascular Exam: regular rate/rhythm, normal heart sounds Gastrointestinal/Abdomen Exam: soft, normal bowel sounds, tenderness (Right flank/right lower quadrant) Back Exam: normal inspection, normal range of motion, CVA tenderness (Right side) Extremity Exam: normal inspection, normal range of motion Neurologic Exam: alert, oriented x 3, cooperative Skin Exam: normal color SpO2 Interpretation: normal SpO2: 100 O2 Delivery: Room Air Ordered Tests: Active Orders 24 hr Category Date Time Status IV Insertion STAT Care 07/06/22 00:13 Active NPO (ED) STAT Care 07/06/22 00:13 Active ABDOMEN AND PELVIS W/0 CONTRAS [CT] Stat Exams 07/06/22 00:51 Taken CBC W DIFF Stat Lab 07/06/22 00:30 Completed CMP Stat Lab 07/06/22 00:30 Completed CULTURE,URINE Stat Lab 07/06/22 00:30 Received HCG,QUALITATIVE URINE Stat Lab 07/06/22 00:21 Completed LIPASE Stat Lab 07/06/22 00:30 Completed UA W/RFX CULTURE Stat Lab 07/06/22 00:30 Completed Medication Summary Discontinued Medications Generic Name Dose Route Start Last Admin Trade Name Freq PRN Reason Stop Dose Admin Sodium Chloride 1,000 mls @ 999 mls/hr 07/06/22 00:13 07/06/22 01:35 Sodium Chloride 0.9% 1000 Ml IV 07/06/22 01:13 Infused .Q1H1M STA Infusion Sodium Chloride Confirm 07/06/22 00:30 Sodium Chloride 0.9% 1000 Ml Administered 07/06/22 00:31 Dose 1,000 mls @ ud .ROUTE .STK-MED ONE Ceftriaxone Sodium/Dextrose 2 g in 50 mls @ 100 mls/hr 07/06/22 01:27 07/06/22 01:34 Rocephin 2 Gm-D5w 50ml Bag IV 07/06/22 01:56 100 mls/hr STAT STA 100 mls/hr Administration Ceftriaxone Sodium/Dextrose Confirm 07/06/22 01:32 Rocephin 2 Gm-D5w 50ml Bag Administered 07/06/22 01:33 Dose 2 g in 50 mls @ ud IV .STK-MED ONE Morphine Sulfate 4 mg 07/06/22 00:13 07/06/22 00:32 Morphine Sulfate 4 Mg/Ml Injection IV 07/06/22 00:14 4 mg STAT ONE Administration Morphine Sulfate Confirm 07/06/22 00:30 Morphine Sulfate 4 Mg/Ml Injection Administered 07/06/22 00:31 Dose 4 mg .ROUTE .STK-MED ONE Ondansetron HCl 4 mg 07/06/22 00:13 07/06/22 00:31 Ondansetron Hcl 4 Mg/2 Ml Vial IV 07/06/22 00:14 4 mg STAT ONE Administration Ondansetron HCl Confirm 07/06/22 00:30 Ondansetron Hcl 4 Mg/2 Ml Vial Administered 07/06/22 00:31 Dose 4 mg .ROUTE .STK-MED ONE Lab/Rad Data: Laboratory Result Diagrams 07/06/22 00:30 07/06/22 00:30 Laboratory Results 07/06/22 07/06/22 07/06/22 Range/Units 00:30 00:30 00:30 WBC 4.9 (4.0-10.5) x10^3/uL RBC 3.89 L (4.1-5.4) x10^6/uL Hgb 12.4 (12.0-16.0) g/dL Hct 38.2 (35-47) % MCV 98.2 (78-100) fL MCH 31.9 (26-32) pg MCHC 32.5 (32-36) g/dL RDW 12.1 (11.5-14.0) % Plt Count 236 (150-450) x10^3/uL MPV 9.4 (7.5-11.0) fL Gran % 35.2 L (36.0-66.0) % Immature Gran % (Auto) 0.0 (0.00-0.4) % Nucleat RBC Rel Count 0.0 (0.00-0.1) % Eos # (Auto) 0.02 (0-0.5) x10^3/uL Immature Gran # (Auto) 0.00 (0.00-0.03) x10^3u/L Absolute Lymphs (auto) 2.60 (1.0-4.6) x10^3/uL Absolute Monos (auto) 0.53 (0.0-1.3) x10^3/uL Absolute Nucleated RBC 0.00 (0.00-0.01) x10^3u/L Lymphocytes % 53.2 H (24.0-44.0) % Monocytes % 10.8 (0.0-12.0) % Eosinophils % 0.4 (0.00-5.0) % Basophils % 0.4 (0.0-0.4) % Absolute Granulocytes 1.72 (1.4-6.9) x10^3/uL Basophils # 0.02 (0-0.4) x10^3/uL Sodium 140 (137-145) mmol/L Potassium 3.8 (3.5-5.1) mmol/L Chloride 105 (98-107) mmol/L Carbon Dioxide 32 H (22-30) mmol/L Anion Gap 7.4 (5-15) MEQ/L BUN 13 (7-17) mg/dL Creatinine 0.55 (0.52-1.04) mg/dL Estimated GFR > 60.0 ML/MIN Glucose 90 (74-106) mg/dL Calcium 9.0 (8.4-10.2) mg/dL Total Bilirubin 0.70 (0.2-1.3) mg/dL AST 19 (14-36) U/L ALT 14 (0-35) U/L Alkaline Phosphatase 61 (38-126) U/L Serum Total Protein 7.2 (6.3-8.2) g/dL Albumin 4.3 (3.5-5.0) g/dL Lipase 51 (23-300) U/L Urinalys Dipstick Clnc MAIN LAB Urine Color DARK YELLOW (YELLOW) Urine Appearance CLOUDY (CLEAR) Urine pH 5.5 (5-6) Ur Specific [place] >=1.030 (1.005-1.025) POC Urine Protein Conf NEGATIVE (Negative) Urine Ketones NEGATIVE (NEGATIVE) Urine Nitrite POSITIVE (NEGATIVE) Urine Bilirubin NEGATIVE (NEGATIVE) Urine Urobilinogen 0.2 (0-1) mg/dL Urine Leukocytes NEGATIVE (NEGATIVE) Urine WBC (Auto) 6-10 (0-5) /HPF Urine RBC (Auto) 3-5 (0-2) /HPF U Epithel Cells (Auto) RARE (FEW) /HPF Urine Bacteria (Auto) MANY (NEGATIVE) /HPF Urine RBC NEGATIVE (0-5) Bassam/ul Urine Mucus (Auto) SLIGHT (NEGATIVE) /HPF Ur Culture Indicated? YES Urine Glucose NEGATIVE (NEGATIVE) mg/dL Urine HCG, Qual (Negative) 07/06/22 Range/Units 00:21 WBC (4.0-10.5) x10^3/uL RBC (4.1-5.4) x10^6/uL Hgb (12.0-16.0) g/dL Hct (35-47) % MCV (78-100) fL MCH (26-32) pg MCHC (32-36) g/dL RDW (11.5-14.0) % Plt Count (150-450) x10^3/uL MPV (7.5-11.0) fL Gran % (36.0-66.0) % Immature Gran % (Auto) (0.00-0.4) % Nucleat RBC Rel Count (0.00-0.1) % Eos # (Auto) (0-0.5) x10^3/uL Immature Gran # (Auto) (0.00-0.03) x10^3u/L Absolute Lymphs (auto) (1.0-4.6) x10^3/uL Absolute Monos (auto) (0.0-1.3) x10^3/uL Absolute Nucleated RBC (0.00-0.01) x10^3u/L Lymphocytes % (24.0-44.0) % Monocytes % (0.0-12.0) % Eosinophils % (0.00-5.0) % Basophils % (0.0-0.4) % Absolute Granulocytes (1.4-6.9) x10^3/uL Basophils # (0-0.4) x10^3/uL Sodium (137-145) mmol/L Potassium (3.5-5.1) mmol/L Chloride (98-107) mmol/L Carbon Dioxide (22-30) mmol/L Anion Gap (5-15) MEQ/L BUN (7-17) mg/dL Creatinine (0.52-1.04) mg/dL Estimated GFR ML/MIN Glucose (74-106) mg/dL Calcium (8.4-10.2) mg/dL Total Bilirubin (0.2-1.3) mg/dL AST (14-36) U/L ALT (0-35) U/L Alkaline Phosphatase (38-126) U/L Serum Total Protein (6.3-8.2) g/dL Albumin (3.5-5.0) g/dL Lipase (23-300) U/L Urinalys Dipstick Clnc Urine Color (YELLOW) Urine Appearance (CLEAR) Urine pH (5-6) Ur Specific [place] (1.005-1.025) POC Urine Protein Conf (Negative) Urine Ketones (NEGATIVE) Urine Nitrite (NEGATIVE) Urine Bilirubin (NEGATIVE) Urine Urobilinogen (0-1) mg/dL Urine Leukocytes (NEGATIVE) Urine WBC (Auto) (0-5) /HPF Urine RBC (Auto) (0-2) /HPF U Epithel Cells (Auto) (FEW) /HPF Urine Bacteria (Auto) (NEGATIVE) /HPF Urine RBC (0-5) Bassam/ul Urine Mucus (Auto) (NEGATIVE) /HPF Ur Culture Indicated? Urine Glucose (NEGATIVE) mg/dL Urine HCG, Qual NEGATIVE (Negative) - Progress Progress: improved, re-examined Progress Note: She is given fluids and symptomatic treatment, on reevaluation feeling much better. Normal white count, grossly unremarkable chemistries, does have UTI. Started on Rocephin.'s CT abdomen pelvis is obtained which is negative for any acute changes in the kidney. Clinically patient seems to have pyelonephritis, will continue with Cipro to go home. CT did show some element of constipation and recommended MiraLAX/fiber in diet. Recommended outpatient follow-up and Tylenol/ibuprofen as needed for pain. Daniela signs symptoms of worsening needing return to ER which she seems understanding 07/06/22 02:12 Counseled pt/family regarding: lab results, diagnosis, need for follow-up, rad results - Departure Departure Disposition: Home Clinical Impression: Acute UTI, Constipation Condition: Stable Critical Care Time: No Referrals: DOCTOR,NO FAMILY [Primary Care Provider] - Follow up/PCP as directed ROSA TAVERAS MD [ACTIVE STAFF] - Follow Up with PCP/3 days Instructions: Flank Pain, Kidney Infection (DC) Additional Instructions: Take Tylenol/ibuprofen as needed for pain. Drink plenty of fluids. Follow-up with primary care for reevaluation. Return to ER for worsening pain, intractable nausea vomiting/fever chills etc. take daily MiraLAX and increase fiber in diet. Prescriptions: Ciprofloxacin [Cipro 500 MG] 500 mg PO BID #14 tablet
[2022-07-06] MEDS ORDERED: MORPHINE SULFATE 4 MG INJ ONE (00:30)
[2022-07-06] MEDS ORDERED: Sodium Chloride 0.9% 1000 ML 1,000 ML ONE (00:30)
[2022-07-06] MEDS ORDERED: Zofran 4 MG/2 ML VIAL ONE (00:30)
[2022-07-06 00:41] LABS: Absolute Neutrophil Ct (ANC) 1.72 x10^3/uL (1.4-6.9); Basophil (Absolute #) 0.02 x10^3/uL (0-0.4); Eosinophil % 0.4 % (0.00-5.0); Eosinophil (Absolute #) 0.02 x10^3/uL (0-0.5); Hematocrit 38.2 % (35-47); Hemoglobin 12.4 g/dL (12.0-16.0); Lymphocytes % 53.2 % (24.0-44.0); Mean Cell Volume 98.2 fL (78-100); Mean Corpuscular Hemoglobin 31.9 pg (26-32); Mean Corpuscular Hgb Concent. 32.5 g/dL (32-36); Mean Platelet Volume 9.4 fL (7.5-11.0); Monocyte (Absolute #) 0.53 x10^3/uL (0.0-1.3); Monocytes % 10.8 % (0.0-12.0); Neutrophil % 35.2 % (36.0-66.0); Platelet Count 236 x10^3/uL (150-450); Red Blood Count 3.89 x10^6/uL (4.1-5.4); Red Cell Distribution Width 12.1 % (11.5-14.0); White Blood Count 4.9 x10^3/uL (4.0-10.5)
[2022-07-06 00:46] LABS: Appearance CLOUDY (CLEAR); Bilirubin NEGATIVE (NEGATIVE); Glucose NEGATIVE (NEGATIVE); Ketones NEGATIVE (NEGATIVE)
[2022-07-06 00:47] LABS: Dipstick done @ ? MAIN LAB; Nitrite POSITIVE (NEGATIVE); Ph 5.5 (5-6); Protein,Urine Dip NEGATIVE (Negative); RBC NEGATIVE Ery/ul (0-5); Specific Gravity >=1.030 (1.005-1.025); Urobilinogen 0.2 mg/dL (0-1)
[2022-07-06 00:58] LABS: ALBUMIN 4.3 g/dL (3.5-5.0); ALKALINE PHOSPHATASE 61 U/L (38-126); ANION GAP 7.4 MEQ/L (5-15); BLOOD UREA NITROGEN 13 mg/dL (7-17); CHLORIDE 105 mmol/L (98-107); Carbon Dioxide 32 mmol/L (22-30); Creatinine 1 0.55 mg/dL (0.52-1.04); EST GLOMERULAR FILTRATION RATE > 60.0 ML/MIN; Glucose 90 mg/dL (74-106); LIPASE 51 U/L (23-300); Potassium 3.8 mmol/L (3.5-5.1); SGOT/AST 19 U/L (14-36); SGPT/ALT 14 U/L (0-35); SODIUM 140 mmol/L (137-145); Total Protein 7.2 g/dL (6.3-8.2)
[2022-07-06] MEDS ORDERED: ROCEPHIN 2 Gm-D5w 50ML BAG** 2 G/50 ML IVPB IV STA (01:27)
[2022-07-06] MEDS ORDERED: ROCEPHIN 2 Gm-D5w 50ML BAG** 2 G/50 ML IVPB IV ONE (01:32)
[2022-07-06 01:44] LABS: Mucus SLIGHT /HPF (NEGATIVE)
[2022-07-06 01:45] LABS: Bacteria MANY /HPF (NEGATIVE); Epithelial Cells RARE /HPF (FEW); Urine Cultured Indicated? YES
[2022-07-06 02:11] VITALS: BP 93/62; PULSE 77
[2022-07-06 02:12] VITALS: O2SAT 100
--- NOTE | 2022-07-06 08:46 | XRAY ---
Indication: Right flank pain and hematuria. Problems urinating. History kidney stone. Multiple contiguous axial images obtained through the abdomen and pelvis without contrast using renal stone protocol. Comparison: December 25, 2021 Lung bases again clear. Heart not enlarged. No renal calculus or evidence for obstructive uropathy in either system. Stomach distended with food/fluid. Noncontrasted stomach and bowel loops nonobstructed. There is now moderate diffuse scattered colonic fecal debris throughout including rectum. No free fluid/air. Stable hepatic calcified granulomas and small right mid renal cortical cyst. Remaining liver, gallbladder, pancreas, spleen, adrenal glands, kidneys, ureters, bladder, and aorta are unremarkable for noncontrast exam. Osseous structures intact again with minimal lower lumbar degenerative changes. Impression: 1. Continued negative renal calculus or evidence for obstructive uropathy. 2. Stable small right renal cyst and evidence for old granulomatous disease. 3. New moderate diffuse fecal stasis. 4. Remaining CT abdomen/pelvis without contrast exam is negative. Comment: Preliminary interpretation made by [facility]. No critical discrepancy.
== END 2022-07-06 02:23 | disposition home or self-care (01) ==
LOC: ED 22:53
DX: N39.0 Urinary tract infection, site not specified (principal); K59.00 Constipation, unspecified; R10.9 Unspecified abdominal pain; R11.2 Nausea with vomiting, unspecified; R19.7 Diarrhea, unspecified; R35.0 Frequency of micturition; Z79.899 Other long term (current) drug therapy; Z28.310 Unvaccinated for COVID-19
CPT/HCPCS: 36000; 36415; 74176; 80053; 81015; 81025; 83690; 85025; 87077; 87086; 87186; 96360; 96365; 96374; 99284; J0696; J2270; J2405

== ENCOUNTER 2022-07-06 19:12 | Emergency (ER) | payer OTHER ==
--- NOTE | 2022-07-06 20:04 | ERPHSYRPT ---
- History of Present Illness Time Seen by Provider: 07/06/22 19:59 Source: patient Exam Limitations: no limitations Patient Subjective Stated Complaint: pt states she was seen in the er last night and diagnosed with a uti. states she is still feeling bad today and has started vomiting. Triage Nursing Assessment: pt alert and oriented, answers questions approp. pt ambulatory with steady gait noted. respirations nonlbored . skin warm and dry. pt states unable to void. no urine to assess at this time. Physician History: Patient is a 36-year-old white female who was seen in the ER last night with right flank pain and diagnosed with a urinary tract infection. Her CT scan at that time did not show any stones or other abnormalities. She was discharged on Cipro and instructed to take Tylenol or ibuprofen for her discomfort. She reports her pain is worse today and she is now vomiting some. Timing/Duration: worse Activites at Onset: none Quality: burning, cramping, stabbing Onset Location: RLQ, right flank Pain Radiation: groin Severity of Pain-Max: moderate Severity of Pain-Current: moderate Prior abdominal problems: other (History of urinary stones in the past) Associated Symptoms: nausea, vomiting Allergies/Adverse Reactions: citalopram hydrobromide [From Celexa] Allergy (Verified 07/06/22 19:27) ketorolac [From Toradol] Allergy (Verified 07/06/22 19:27) Sulfa (Sulfonamide Antibiotics) Allergy (Verified 07/06/22 19:27) tramadol HCl [From Ultram] Allergy (Verified 07/06/22 19:27) Home Medications: Dextroamphetamine/Amphetamine [Adderall 10 mg Tablet] 20 mg PO BID 11/05/19 [History] Hx Tetanus, Diphtheria Vaccination/Date Given: Yes Hx Influenza Vaccination/Date Given: No Hx Pneumococcal Vaccination/Date Given: No Travel Risk - International Travel Have you traveled outside of the country in past 3 weeks: No - Coronavirus Screening Are you exhibiting any of the following symptoms?: No Close contact with a COVID-19 positive Pt in past 14-21 Days: No - Vaccine Status Have you recieved a Covid-19 vaccination: No - Review of Systems Constitutional: No Fever, No Chills Eyes: No Symptoms Ears, Nose, & Throat: No Symptoms Respiratory: No Cough, No Dyspnea Cardiac: No Chest Pain, No Edema, No Syncope Abdominal/Gastrointestinal: Nausea, Vomiting, No Abdominal Pain, No Diarrhea Genitourinary Symptoms: Dysuria, Flank Pain Musculoskeletal: No Back Pain, No Neck Pain Skin: No Rash Neurological: No Dizziness, No Focal Weakness, No Sensory Changes Psychological: No Symptoms Endocrine: No Symptoms All Other Systems: Reviewed and Negative - Past Medical History Pertinent Past Medical History: Yes Musculoskeletal History: Other Psycho-Social History: Anxiety, Attention Deficit Disorder, Depression Female Reproductive Disorders: Cervical Cancer, Endometriosis Other Medical History: SHOULDER SURGERY X 4 FOR TORN MUSCLES AND SHREDDED IN LEFT SHOULDER ,lupus - Past Surgical History Past Surgical History: Yes Neuro Surgical History: No Pertinent History Cardiac: No Pertinent History Respiratory: No Pertinent History Gastrointestinal: Appendectomy, Exploratory Laparoscopy Musculoskeletal: Orthopedic Surgery Female Surgical History: Hysterectomy, Dilation & Curettage, Section Other Surgical History: left wrist - plate and screws,skin grafting. granulomas removed from lower abdomen. cyst removed from right neck. deviated septum repair. sinus surgery - Social History Smoking Status: Former smoker Exposure to second hand smoke: Yes Drug Use: none Patient Lives Alone: No Significant Family History: no pertinent family hx - Female History Hx Last Menstrual Period: hyster Hx Now: No - Nursing Vital Signs Nursing Vital Signs: Initial Vital Signs Temperature 98.3 F 07/06/22 19:21 Pulse Rate 84 07/06/22 19:21 Respiratory Rate 16 07/06/22 19:21 Blood Pressure 103/69 07/06/22 19:21 O2 Sat by Pulse Oximetry 97 07/06/22 19:21 Pain Scale Pain Intensity 9 - Physical Exam General Appearance: mild distress, alert Eye Exam: PERRL/EOMI, eyes nml inspection Ears, Nose, Throat Exam: normal ENT inspection, TMs normal, pharynx normal, moist mucous membranes Neck Exam: normal inspection, non-tender, supple, full range of motion Respiratory Exam: normal breath sounds, lungs clear, No respiratory distress Cardiovascular Exam: regular rate/rhythm, normal heart sounds, normal peripheral pulses Gastrointestinal/Abdomen Exam: soft, No tenderness, No mass Back Exam: normal inspection, normal range of motion, CVA tenderness, No vertebral tenderness Extremity Exam: normal inspection, normal range of motion, pelvis stable Neurologic Exam: alert, oriented x 3, cooperative, vacuum caster II-XII nml as tested, normal mood/affect, sensation nml, No motor deficits Skin Exam: normal color, warm, dry Lymphatic Exam: No adenopathy SpO2 Interpretation: normal SpO2: 97 O2 Delivery: Room Air Ordered Tests: Active Orders 24 hr Category Date Time Status UA W/RFX CULTURE Stat Lab 07/06/22 19:59 Completed Lab/Rad Data: Laboratory Results 07/06/22 Range/Units 19:59 Urinalys Dipstick Clnc MAIN LAB Urine Color YELLOW (YELLOW) Urine Appearance CLEAR (CLEAR) Urine pH 6.5 (5-6) Ur Specific [place] 1.025 (1.005-1.025) POC Urine Protein Conf NEGATIVE (Negative) Urine Ketones NEGATIVE (NEGATIVE) Urine Nitrite NEGATIVE (NEGATIVE) Urine Bilirubin NEGATIVE (NEGATIVE) Urine Urobilinogen 0.2 (0-1) mg/dL Urine Leukocytes NEGATIVE (NEGATIVE) Urine WBC (Auto) NONE (0-5) /HPF Urine RBC (Auto) NONE (0-2) /HPF U Epithel Cells (Auto) NONE (FEW) /HPF Urine Bacteria (Auto) NONE (NEGATIVE) /HPF Urine RBC NEGATIVE (0-5) Bassam/ul Urine Mucus (Auto) SLIGHT (NEGATIVE) /HPF Ur Culture Indicated? NO Urine Glucose NEGATIVE (NEGATIVE) mg/dL - Progress Progress: improved Air Movement: good Blood Culture(s) Obtained: No Antibiotics given: No - Departure Departure Disposition: Home Clinical Impression: UTI (urinary tract infection) Condition: Stable Critical Care Time: No Referrals: DOCTOR,NO FAMILY [Primary Care Provider] - Follow up/PCP as directed Instructions: Urinary Tract Infection, Adult (DC) Prescriptions: Ondansetron ODT 4 MG [Zofran Odt 4 mg] 4 mg PO Q6H PRN PRN #10 tablet PRN Reason: Vomiting Phenazopyridine HCl 200 mg [Pyridium 200 mg] 200 mg PO TID #6 tablet
[2022-07-06 20:12] LABS: Mucus SLIGHT /HPF (NEGATIVE)
[2022-07-06 20:13] LABS: Appearance CLEAR (CLEAR); Bilirubin NEGATIVE (NEGATIVE); Dipstick done @ ? MAIN LAB; Glucose NEGATIVE (NEGATIVE); Ketones NEGATIVE (NEGATIVE); Nitrite NEGATIVE (NEGATIVE); Ph 6.5 (5-6); Protein,Urine Dip NEGATIVE (Negative); RBC NEGATIVE Ery/ul (0-5); Specific Gravity 1.025 (1.005-1.025); Urobilinogen 0.2 mg/dL (0-1)
[2022-07-06 20:14] LABS: Urine Cultured Indicated? NO
[2022-07-06] MEDS ORDERED: PYRIDIUM 200 MG PO STA (20:41)
[2022-07-06] MEDS ORDERED: Hydromorphone 1 mg/ml Injection IM ONE (20:41)
[2022-07-06] MEDS ORDERED: Hydromorphone 1 mg/ml Injection ONE (20:45)
[2022-07-06] MEDS ORDERED: PYRIDIUM 200 MG ONE (20:45)
[2022-07-06 20:58] VITALS: BP 106/55; PULSE 64; O2SAT 99
== END 2022-07-06 21:12 | disposition home or self-care (01) ==
LOC: ED 19:12
DX: N39.0 Urinary tract infection, site not specified (principal); R10.9 Unspecified abdominal pain; R11.2 Nausea with vomiting, unspecified; Z87.442 Personal history of urinary calculi; Z79.899 Other long term (current) drug therapy; Z28.310 Unvaccinated for COVID-19
CPT/HCPCS: 81015; 96372; 99283; J1170; A9270-GY

== ENCOUNTER 2022-08-17 01:24 | Emergency (ER) | payer SELFPAY ==
[2022-08-17] MEDS ORDERED: MORPHINE SULFATE 4 MG INJ IM ONE (01:46)
[2022-08-17] MEDS ORDERED: MORPHINE SULFATE 4 MG INJ ONE (01:50)
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
[2022-08-17 03:08] VITALS: PULSE 82; O2SAT 100
[2022-08-17 03:11] VITALS: BP 113/75
== END 2022-08-17 03:00 | disposition home or self-care (01) ==
LOC: ED 01:24
DX: M62.830 Muscle spasm of back (principal); M54.9 Dorsalgia, unspecified; Z79.899 Other long term (current) drug therapy; Z28.310 Unvaccinated for COVID-19
CPT/HCPCS: 96372; 99283; J2270

== ENCOUNTER 2022-09-17 21:26 | Emergency (ER) | payer OTHER ==
[2022-09-17 22:00] LABS: Appearance CLOUDY (CLEAR); Bilirubin SMALL (NEGATIVE); Glucose NEGATIVE (NEGATIVE); Ketones TRACE (NEGATIVE); Protein,Urine Dip 30 (Negative); RBC NEGATIVE Ery/ul (0-5); Specific Gravity >=1.030 (1.005-1.025); Urobilinogen 0.2 mg/dL (0-1)
[2022-09-17 22:01] LABS: Dipstick done @ ? MAIN LAB; Nitrite POSITIVE (NEGATIVE)
[2022-09-17 22:04] LABS: Group A Strep NOT DETECTED (NEGATIVE)
[2022-09-17 22:07] LABS: Bacteria PACKED /HPF (NEGATIVE); Epithelial Cells FEW /HPF (FEW); Mucus SLIGHT /HPF (NEGATIVE); RBC 0-2 /HPF (0-2)
[2022-09-17 22:09] LABS: Urine Cultured Indicated? YES
[2022-09-17 22:16] LABS: INFLUENZA A NEGATIVE (NEGATIVE); INFLUENZA B NEGATIVE (NEGATIVE); RESPIRATORY SYNCTIAL VIRUS NEGATIVE (Negative)
[2022-09-17 22:20] LABS: SARS-CoV-2 Xpert Express POSITIVE (NEGATIVE)
[2022-09-17] MEDS ORDERED: Compazine 10 MG/2 ML IM PRN (22:32)
[2022-09-17] MEDS ORDERED: Rocephin 1000 MG INJ IM ONE (22:32)
[2022-09-17] MEDS ORDERED: TYLENOL 325 MG PO ONE (22:33)
[2022-09-17] MEDS ORDERED: Compazine 10 MG/2 ML ONE (22:38)
[2022-09-17] MEDS ORDERED: ROCEPHIN 1 Gm-D5w 50 ml Bag** 1 G/50 ML IVPB IV ONE (22:38)
[2022-09-17] MEDS ORDERED: TYLENOL 325 MG ONE (22:38)
[2022-09-17] MEDS ORDERED: ROCEPHIN 1 Gm-D5w 50 ml Bag** 1 G/50 ML IVPB IV STA (22:40)
--- NOTE | 2022-09-17 22:40 | ERPHSYRPT ---
- History of Present Illness Time Seen by Provider: 09/17/22 22:41 Source: patient Exam Limitations: no limitations Patient Subjective Stated Complaint: rt ear pain, fever, headache and my low back hurts on both sides. Triage Nursing Assessment: Pt ambulated into ER without diff. Pt c/o rt ear pain, fever, headache and bilat flank pain which all started yesterday morning. Pt afebrile at 97.9, rt ear pink with wax and tube in place, abd soft with active bs x4 quad, nontender and lungs clear. Pt denies any cough, chest pain or sob. Physician History: 36-year-old female presents for emergency department for evaluation of right ear pain and bilateral flank pain. Symptoms started yesterday. Patient has subjective fevers. No trauma. No nausea vomiting no diarrhea. No rash. Symptoms are mild to moderate in intensity. No specific worsening proving factors. Patient voices no other complaints or concerns at this time. Portions of this note were created with voice recognition technology. There may be grammatical, spelling, punctuation or sound alike errors Timing/Duration: yesterday Severity: moderate Modifying Factors: Improves With: other (Aleve) Associated Symptoms: denies symptoms, headaches, No nausea, No vomiting, No shortness of breath, No heartburn, No syncope, No seizure, No weakness, No other Allergies/Adverse Reactions: citalopram hydrobromide [From Celexa] Allergy (Verified 09/17/22 21:40) ketorolac [From Toradol] Allergy (Verified 09/17/22 21:40) Sulfa (Sulfonamide Antibiotics) Allergy (Verified 09/17/22 21:40) tramadol HCl [From Ultram] Allergy (Verified 09/17/22 21:40) Home Medications: Dextroamphetamine/Amphetamine [Adderall 10 mg Tablet] 20 mg PO BID 11/05/19 [History] Hx Tetanus, Diphtheria Vaccination/Date Given: Yes Hx Influenza Vaccination/Date Given: No Hx Pneumococcal Vaccination/Date Given: No Immunizations Up to Date: Yes Travel Risk - International Travel Have you traveled outside of the country in past 3 weeks: No - Coronavirus Screening Are you exhibiting any of the following symptoms?: Yes Symptoms: Fever, Headaches/Body Aches/Fatigue Close contact with a COVID-19 positive Pt in past 14-21 Days: No - Vaccine Status Have you recieved a Covid-19 vaccination: No - Review of Systems Constitutional: No Symptoms, No Fever, No Chills Eyes: No Symptoms Ears, Nose, & Throat: No Symptoms Respiratory: No Symptoms, No Cough, No Dyspnea Cardiac: No Symptoms, No Chest Pain, No Edema, No Syncope Abdominal/Gastrointestinal: No Symptoms, No Abdominal Pain, No Nausea, No Vomiting, No Diarrhea Genitourinary Symptoms: No Symptoms, No Dysuria Musculoskeletal: No Symptoms, No Back Pain, No Neck Pain Skin: No Symptoms, No Rash Neurological: No Symptoms, No Dizziness, No Focal Weakness, No Sensory Changes Psychological: No Symptoms Endocrine: No Symptoms Hematologic/Lymphatic: No Symptoms Immunological/Allergic: No Symptoms All Other Systems: Reviewed and Negative - Past Medical History Pertinent Past Medical History: Yes Musculoskeletal History: Other Psycho-Social History: Anxiety, Attention Deficit Disorder, Depression Female Reproductive Disorders: Cervical Cancer, Endometriosis Other Medical History: SHOULDER SURGERY X 4 FOR TORN MUSCLES AND SHREDDED IN LEFT SHOULDER ,lupus - Past Surgical History Past Surgical History: Yes Neuro Surgical History: No Pertinent History Cardiac: No Pertinent History Respiratory: No Pertinent History Gastrointestinal: Appendectomy, Exploratory Laparoscopy Musculoskeletal: Orthopedic Surgery Female Surgical History: Hysterectomy, Dilation & Curettage, Section Other Surgical History: left wrist - plate and screws,skin grafting. granulomas removed from lower abdomen. cyst removed from right neck. deviated septum repair. sinus surgery. tube to rt ear - Social History Smoking Status: Former smoker Exposure to second hand smoke: No Drug Use: none Patient Lives Alone: No Significant Family History: no pertinent family hx - Female History Hx Now: No - Nursing Vital Signs Nursing Vital Signs: Initial Vital Signs Temperature 97.9 F 09/17/22 21:31 Pulse Rate 72 09/17/22 21:31 Respiratory Rate 16 09/17/22 21:31 Blood Pressure 113/80 09/17/22 21:31 O2 Sat by Pulse Oximetry 100 09/17/22 21:31 Pain Scale Pain Intensity 9 - Physical Exam General Appearance: no apparent distress, alert Eye Exam: PERRL/EOMI, eyes nml inspection Ears, Nose, Throat Exam: normal ENT inspection, TMs normal, pharynx normal, moist mucous membranes, other (Right ear tube. The TM surrounding the tube appears to be inflamed. Patient complained of ear pain during otoscopy) Neck Exam: normal inspection, non-tender, supple, full range of motion Respiratory Exam: normal breath sounds, lungs clear, airway intact, No respiratory distress Cardiovascular Exam: regular rate/rhythm, normal heart sounds, normal peripheral pulses Gastrointestinal/Abdomen Exam: soft, normal bowel sounds, other (Bilateral flank pain. No tenderness.), No tenderness, No mass Back Exam: normal inspection, normal range of motion, No CVA tenderness, No vertebral tenderness Extremity Exam: normal inspection, normal range of motion, pelvis stable Neurologic Exam: alert, oriented x 3, cooperative, normal mood/affect, nml cerebellar function, nml station & gait, sensation nml, No motor deficits Skin Exam: normal color, warm, dry, No rash Lymphatic Exam: No adenopathy SpO2 Interpretation: normal SpO2: 98 O2 Delivery: Room Air - Course Nursing assessment & vital signs reviewed: Yes - CT Exams Abdomen/Pelvis CT Interpretation: Tele-radiologist Report (No abdominal or pelvic masses. No evidence of acute inflammation. Findings concerning for clinical constipation correlate clinically) Ordered Tests: Active Orders 24 hr Category Date Time Status ABDOMEN AND PELVIS W/0 CONTRAS [CT] Stat Exams 09/17/22 22:35 Taken CBC W DIFF Stat Lab 09/17/22 22:45 Completed CMP Stat Lab 09/17/22 22:45 Completed CULTURE,URINE Stat Lab 09/17/22 21:46 Received UA W/RFX CULTURE Stat Lab 09/17/22 21:46 Completed Medication Summary Generic Name Dose Route Start Last Admin Trade Name Freq PRN Reason Stop Dose Admin Sodium Chloride 1,000 mls @ 999 mls/hr 09/17/22 22:44 09/17/22 22:48 Sodium Chloride 0.9% 1000 Ml IV 09/17/22 23:44 999 mls/hr .Q1H1M STA Administration Prochlorperazine Edisylate 10 mg 09/17/22 22:32 09/17/22 22:43 Prochlorperazine Edisylate 10 Mg/2 Ml Vial IM 10/17/22 22:31 10 mg Q6H PRN PRN Administration NAUSEA/VOMITING Discontinued Medications Generic Name Dose Route Start Last Admin Trade Name Freq PRN Reason Stop Dose Admin Acetaminophen 975 mg 09/17/22 22:33 09/17/22 22:42 Acetaminophen 325 Mg Tablet PO 09/17/22 22:34 975 mg STAT ONE Administration Acetaminophen Confirm 09/17/22 22:38 Acetaminophen 325 Mg Tablet Administered 09/17/22 22:39 Dose 975 mg .ROUTE .STK-MED ONE Ceftriaxone Sodium 1,000 mg 09/17/22 22:32 09/17/22 22:52 Ceftriaxone Sodium 1000 Mg Inj Vial IM 09/17/22 22:33 Not Given STAT ONE Ceftriaxone Sodium/Dextrose 1 g in 50 mls @ 100 mls/hr 09/17/22 22:40 09/17/22 22:44 Rocephin 1 Gm-D5w 50 Ml Bag IV 09/17/22 23:09 100 mls/hr STAT STA 100 mls/hr Administration Ceftriaxone Sodium/Dextrose Confirm 09/17/22 22:38 Rocephin 1 Gm-D5w 50 Ml Bag Administered 09/17/22 22:39 Dose 1 g in 50 mls @ ud IV .STK-MED ONE Sodium Chloride Confirm 09/17/22 22:47 Sodium Chloride 0.9% 1000 Ml Administered 09/17/22 22:48 Dose 1,000 mls @ ud .ROUTE .STK-MED ONE Lab/Rad Data: Laboratory Result Diagrams 09/17/22 22:45 09/17/22 22:45 Laboratory Results 09/17/22 09/17/22 09/17/22 Range/Units 22:45 22:45 21:46 WBC 3.0 L (4.0-10.5) x10^3/uL RBC 3.87 L (4.1-5.4) x10^6/uL Hgb 12.5 (12.0-16.0) g/dL Hct 38.8 (35-47) % MCV 100.3 H (78-100) fL MCH 32.3 H (26-32) pg MCHC 32.2 (32-36) g/dL RDW 12.2 (11.5-14.0) % Plt Count 180 (150-450) x10^3/uL MPV 9.2 (7.5-11.0) fL Gran % 48.0 (36.0-66.0) % Immature Gran % (Auto) 0.3 (0.00-0.4) % Nucleat RBC Rel Count 0.0 (0.00-0.1) % Eos # (Auto) 0 (0-0.5) x10^3/uL Immature Gran # (Auto) 0.01 (0.00-0.03) x10^3u/L Absolute Lymphs (auto) 1.22 (1.0-4.6) x10^3/uL Absolute Monos (auto) 0.31 (0.0-1.3) x10^3/uL Absolute Nucleated RBC 0.00 (0.00-0.01) x10^3u/L Lymphocytes % 41.2 (24.0-44.0) % Monocytes % 10.5 (0.0-12.0) % Eosinophils % 0.0 (0.00-5.0) % Basophils % 0.0 (0.0-0.4) % Absolute Granulocytes 1.42 (1.4-6.9) x10^3/uL Basophils # 0 (0-0.4) x10^3/uL Sodium 138 (137-145) mmol/L Potassium 3.5 (3.5-5.1) mmol/L Chloride 101 (98-107) mmol/L Carbon Dioxide 30 (22-30) mmol/L Anion Gap 10.5 (5-15) MEQ/L BUN 21 H (7-17) mg/dL Creatinine 0.50 L (0.52-1.04) mg/dL Estimated GFR > 60.0 ML/MIN Glucose 91 (74-106) mg/dL Calcium 8.7 (8.4-10.2) mg/dL Total Bilirubin 0.70 (0.2-1.3) mg/dL AST 30 (14-36) U/L ALT 15 (0-35) U/L Alkaline Phosphatase 59 (38-126) U/L Serum Total Protein 7.2 (6.3-8.2) g/dL Albumin 4.2 (3.5-5.0) g/dL Urinalys Dipstick Clnc MAIN LAB Urine Color YELLOW (YELLOW) Urine Appearance CLOUDY A (CLEAR) Urine pH 5.0 (5-6) Ur Specific [place] >=1.030 A (1.005-1.025) POC Urine Protein Conf 30 A (Negative) Urine Ketones TRACE A (NEGATIVE) Urine Nitrite POSITIVE A (NEGATIVE) Urine Bilirubin SMALL A (NEGATIVE) Urine Urobilinogen 0.2 (0-1) mg/dL Urine Leukocytes NEGATIVE (NEGATIVE) Urine WBC (Auto) 3-5 A (0-5) /HPF Urine RBC (Auto) 0-2 (0-2) /HPF U Epithel Cells (Auto) FEW (FEW) /HPF Urine Bacteria (Auto) PACKED A (NEGATIVE) /HPF Urine RBC NEGATIVE (0-5) Bassam/ul Urine Mucus (Auto) SLIGHT A (NEGATIVE) /HPF Ur Culture Indicated? YES Urine Glucose NEGATIVE (NEGATIVE) mg/dL Influenza Type A Ag (NEGATIVE) Influenza Type B Ag (NEGATIVE) RSV (PCR) (Negative) SARS-CoV-2 (PCR) (NEGATIVE) Group A Strep Antibody (NEGATIVE) 09/17/22 Range/Units 21:30 WBC (4.0-10.5) x10^3/uL RBC (4.1-5.4) x10^6/uL Hgb (12.0-16.0) g/dL Hct (35-47) % MCV (78-100) fL MCH (26-32) pg MCHC (32-36) g/dL RDW (11.5-14.0) % Plt Count (150-450) x10^3/uL MPV (7.5-11.0) fL Gran % (36.0-66.0) % Immature Gran % (Auto) (0.00-0.4) % Nucleat RBC Rel Count (0.00-0.1) % Eos # (Auto) (0-0.5) x10^3/uL Immature Gran # (Auto) (0.00-0.03) x10^3u/L Absolute Lymphs (auto) (1.0-4.6) x10^3/uL Absolute Monos (auto) (0.0-1.3) x10^3/uL Absolute Nucleated RBC (0.00-0.01) x10^3u/L Lymphocytes % (24.0-44.0) % Monocytes % (0.0-12.0) % Eosinophils % (0.00-5.0) % Basophils % (0.0-0.4) % Absolute Granulocytes (1.4-6.9) x10^3/uL Basophils # (0-0.4) x10^3/uL Sodium (137-145) mmol/L Potassium (3.5-5.1) mmol/L Chloride (98-107) mmol/L Carbon Dioxide (22-30) mmol/L Anion Gap (5-15) MEQ/L BUN (7-17) mg/dL Creatinine (0.52-1.04) mg/dL Estimated GFR ML/MIN Glucose (74-106) mg/dL Calcium (8.4-10.2) mg/dL Total Bilirubin (0.2-1.3) mg/dL AST (14-36) U/L ALT (0-35) U/L Alkaline Phosphatase (38-126) U/L Serum Total Protein (6.3-8.2) g/dL Albumin (3.5-5.0) g/dL Urinalys Dipstick Clnc Urine Color (YELLOW) Urine Appearance (CLEAR) Urine pH (5-6) Ur Specific [place] (1.005-1.025) POC Urine Protein Conf (Negative) Urine Ketones (NEGATIVE) Urine Nitrite (NEGATIVE) Urine Bilirubin (NEGATIVE) Urine Urobilinogen (0-1) mg/dL Urine Leukocytes (NEGATIVE) Urine WBC (Auto) (0-5) /HPF Urine RBC (Auto) (0-2) /HPF U Epithel Cells (Auto) (FEW) /HPF Urine Bacteria (Auto) (NEGATIVE) /HPF Urine RBC (0-5) Bassam/ul Urine Mucus (Auto) (NEGATIVE) /HPF Ur Culture Indicated? Urine Glucose (NEGATIVE) mg/dL Influenza Type A Ag NEGATIVE (NEGATIVE) Influenza Type B Ag NEGATIVE (NEGATIVE) RSV (PCR) NEGATIVE (Negative) SARS-CoV-2 (PCR) POSITIVE A (NEGATIVE) Group A Strep Antibody NOT DETECTED (NEGATIVE) - Progress Progress: improved Progress Note: Patient reassessed. She feels much better. IV fluids infused. Laboratory work-up reveals a mild leukopenia which can be seen with COVID infection. CT scan abdomen pelvis reveals some constipation. This may explain her flank pain. No evidence of pyelonephritis or inflamed kidneys. Patient received a dose of Rocephin IV for the urinary tract infection. A prescription for Augmentin was forwarded to patient's pharmacy. Augmentin will cover urine and right ear pain possible otitis media. Patient has a ear tube intact in the involved ear. 09/17/22 23:36 Patient's father brought her food. Patient tolerated p.o. No vomiting 09/17/22 23:42 Counseled pt/family regarding: lab results, diagnosis, need for follow-up, rad results - Departure Departure Disposition: Home Clinical Impression: UTI (urinary tract infection), COVID-19, Otalgia, right ear, Headache, Constipation, Leukopenia Condition: Stable Critical Care Time: No Referrals: DOCTOR,NO FAMILY [Primary Care Provider] - Follow up/PCP as directed KJ ISIDRO DO [ACTIVE STAFF] - Follow up/PCP as directed Additional Instructions: Discharge/Care Plan ASAD CABRERA was seen on 09/17/22 in the Emergency Room. The patient was counseled regarding Diagnosis,Lab results, Imaging studies, need for follow up and when to return to the Emergency Room. Prescriptions given: Discharge Note I have spoken with the patient and/or caregivers. I have explained the patient's condition, diagnosis and treatment plan based on the information available to me at this time. I have answered the patient's and/or caregiver's questions and addressed any concerns. The patient and/or caregivers have as good understanding of the patient's diagnosis, condition and treatment plan as can be expected at this point. The vital signs have been stable. The patient's condition is stable and appropriate for discharge from the emergency department. The patient will pursue further outpatient evaluation with the primary care physician or other designated or consulting physician as outlined in the discharge instructions. The patient and/or caregivers are agreeable to this plan of care and follow-up instructions have been explained in detail. The patient and/or caregivers have received these instruction. The patient/and or caregivers are aware that any significant change in condition or worsening of symptoms should prompt an immediate return to this or the closest emergency department or call 911. Prescriptions: Amox Tr/Potass Clav. 875 mg [Augmentin 875-125 Tablet] 875 mg PO BID 7 Days #14 tablet
[2022-09-17] MEDS ORDERED: Sodium Chloride 0.9% 1000 ML 1,000 ML IV STA (22:44)
[2022-09-17] MEDS ORDERED: Sodium Chloride 0.9% 1000 ML 1,000 ML ONE (22:47)
[2022-09-17 22:52] LABS: Absolute Neutrophil Ct (ANC) 1.42 x10^3/uL (1.4-6.9); Basophil (Absolute #) 0 x10^3/uL (0-0.4); Eosinophil (Absolute #) 0 x10^3/uL (0-0.5); Hematocrit 38.8 % (35-47); Hemoglobin 12.5 g/dL (12.0-16.0); Lymphocyte (Absolute #) 1.22 x10^3/uL (1.0-4.6); Lymphocytes % 41.2 % (24.0-44.0); Mean Cell Volume 100.3 fL (78-100); Mean Corpuscular Hemoglobin 32.3 pg (26-32); Mean Corpuscular Hgb Concent. 32.2 g/dL (32-36); Mean Platelet Volume 9.2 fL (7.5-11.0); Monocyte (Absolute #) 0.31 x10^3/uL (0.0-1.3); Monocytes % 10.5 % (0.0-12.0); Platelet Count 180 x10^3/uL (150-450); Red Blood Count 3.87 x10^6/uL (4.1-5.4); Red Cell Distribution Width 12.2 % (11.5-14.0)
[2022-09-17 23:06] LABS: ALBUMIN 4.2 g/dL (3.5-5.0); ALKALINE PHOSPHATASE 59 U/L (38-126); ANION GAP 10.5 MEQ/L (5-15); BLOOD UREA NITROGEN 21 mg/dL (7-17); CHLORIDE 101 mmol/L (98-107); Calcium 8.7 mg/dL (8.4-10.2); Carbon Dioxide 30 mmol/L (22-30); EST GLOMERULAR FILTRATION RATE > 60.0 ML/MIN; Glucose 91 mg/dL (74-106); Potassium 3.5 mmol/L (3.5-5.1); SGOT/AST 30 U/L (14-36); SGPT/ALT 15 U/L (0-35); SODIUM 138 mmol/L (137-145); Total Protein 7.2 g/dL (6.3-8.2)
[2022-09-17 23:42] VITALS: O2SAT 98
[2022-09-18 00:09] VITALS: BP 92/61; PULSE 85
--- NOTE | 2022-09-18 08:45 | XRAY ---
Indication: Bilateral abdomen/flank pain, nausea, and vomiting. Hematuria. Kidney infection. Positive Covid 19. Multiple contiguous axial images obtained through the abdomen and pelvis without contrast using renal stone protocol. Comparison: July 06, 2022 Lung bases clear. Heart not enlarged. No renal calculus or evidence for obstructive uropathy in either system. Noncontrasted stomach and bowel loops nonobstructed. Again moderate scattered colonic fecal debris throughout the including rectum. Again appendectomy and hysterectomy reported. No free fluid/air. Stable hepatic calcified granulomas and small right mid renal cyst. Remaining liver, gallbladder, pancreas, spleen, adrenal glands, kidneys, ureters, bladder, and aorta are unremarkable for noncontrast exam. Osseous structures intact again with minimal lower lumbar degenerative changes. Impression: 1. Continued negative renal calculus or evidence for obstructive uropathy. 2. Grossly stable moderate diffuse fecal stasis, small right renal cyst, and old granulomatous disease. Comment: Preliminary interpretation made by [facility]. No critical discrepancy.
== END 2022-09-18 00:03 | disposition home or self-care (01) ==
LOC: ED 21:26
DX: U07.1 COVID-19 (principal); N39.0 Urinary tract infection, site not specified; H92.01 Otalgia, right ear; R51.9 Headache, unspecified; K59.00 Constipation, unspecified; D72.819 Decreased white blood cell count, unspecified; R10.9 Unspecified abdominal pain; Z79.899 Other long term (current) drug therapy; Z28.310 Unvaccinated for COVID-19
CPT/HCPCS: 0241U; 36000; 36415; 74176; 80053; 81015; 85025; 87086; 87651; 96365; 99284; 87077; 87186; J0696; A9270-GY

== ENCOUNTER 2024-07-09 18:58 | Emergency (ER) | payer OTHER ==
--- NOTE | 2024-07-09 19:08 | ERPHSYRPT ---
- History of Present Illness Time Seen by Provider: 07/09/24 19:08 Source: patient Exam Limitations: no limitations Physician History: This is a 38-year-old white female patient who does not have a primary care provider and is not taking any medications at this time but does have a history of anxiety, ADD and depression and presents to the emergency department by private vehicle secondary to left upper eyelid redness and swelling. Patient woke up this morning with the left upper eyelid swelling. There was no injury to this area. She has never had anything like this before. There is been no exposure to viruses or individuals with similar symptoms. Timing/Duration: today Location: left eye Severity: mild Apparent Injury: no Associated Symptoms: burning (Mild burning sensation), redness ( left upper eyelid), eyelid swelling (Mild upper eyelid swelling. No periorbital cellulitis), No matting Visual Assistive Devices: None Chemical Exposure: No Trauma: No Welding Arc/Tanning Bed Exposure: No Allergies/Adverse Reactions: citalopram hydrobromide [From Celexa] Allergy (Verified 07/09/24 19:05) ketorolac [From Toradol] Allergy (Verified 07/09/24 19:05) Sulfa (Sulfonamide Antibiotics) Allergy (Verified 07/09/24 19:05) tramadol HCl [From Ultram] Allergy (Verified 07/09/24 19:05) Hx Tetanus, Diphtheria Vaccination/Date Given: Yes Hx Influenza Vaccination/Date Given: No Hx Pneumococcal Vaccination/Date Given: No Travel Risk - International Travel Have you traveled outside of the country in past 3 weeks: No - Emerging Infectious Disease Are you exhibiting symptoms associated with any current EIDs: No - Review of Systems Constitutional: No Symptoms Eyes: Other (Upper eyelid mild burning and redness and mild swelling), No Eye Redness (No conjunctivitis), No Tearing, No Foreign Body Sensation Ears, Nose, & Throat: No Symptoms Respiratory: No Symptoms Cardiac: No Symptoms Abdominal/Gastrointestinal: No Symptoms Genitourinary Symptoms: No Symptoms Musculoskeletal: No Symptoms Skin: No Symptoms Neurological: No Symptoms Psychological: No Symptoms Endocrine: No Symptoms Hematologic/Lymphatic: No Symptoms Immunological/Allergic: No Symptoms All Other Systems: Reviewed and Negative - Past Medical History Pertinent Past Medical History: Yes Musculoskeletal History: Other Psycho-Social History: Anxiety, Attention Deficit Disorder, Depression Female Reproductive Disorders: Cervical Cancer, Endometriosis Other Medical History: SHOULDER SURGERY X 4 FOR TORN MUSCLES AND SHREDDED IN LEFT SHOULDER ,lupus - Past Surgical History Past Surgical History: Yes Neuro Surgical History: No Pertinent History Cardiac: No Pertinent History Respiratory: No Pertinent History Gastrointestinal: Appendectomy, Exploratory Laparoscopy Musculoskeletal: Orthopedic Surgery Female Surgical History: Hysterectomy, Dilation & Curettage, Section Other Surgical History: left wrist - plate and screws,skin grafting. granulomas removed from lower abdomen. cyst removed from right neck. deviated septum repair. sinus surgery. tube to rt ear Significant Family History: no pertinent family hx - Social History Smoking Status: Former smoker Exposure to second hand smoke: No Drug Use: none Patient Lives Alone: No - Nursing Vital Signs Nursing Vital Signs: Initial Vital Signs Temperature 97.1 F 07/09/24 19:06 Pulse Rate 83 07/09/24 19:06 Respiratory Rate 16 07/09/24 19:06 Blood Pressure 121/85 07/09/24 19:06 O2 Sat by Pulse Oximetry 100 07/09/24 19:06 Pain Scale Pain Intensity 4 - Physical Exam General Appearance: no apparent distress, alert, thin Eye Exam: left eye: other (Mild swelling upper eyelid. 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 as tested, normal mood/affect, nml cerebellar function, nml station & gait, sensation nml Skin Exam: normal color, warm, dry Lymphatic: No adenopathy SpO2 Interpretation: normal O2 Delivery: Room Air - Course Nursing assessment & vital signs reviewed: Yes Ordered Tests: Medication Summary Discontinued Medications Generic Name Dose Route Start Last Admin Trade Name Freq PRN Reason Stop Dose Admin Cephalexin HCl 500 mg 07/09/24 20:38 07/09/24 20:47 Cephalexin Mh500 Mg Capsule PO 07/09/24 20:39 500 mg STAT ONE Administration Cephalexin HCl Confirm 07/09/24 20:46 Cephalexin Mh500 Mg Capsule Administered 07/09/24 20:47 Dose 500 mg .ROUTE .STK-MED ONE Prednisone 20 mg 07/09/24 20:38 07/09/24 20:47 Prednisone 20 Mg Tablet PO 07/09/24 20:39 20 mg STAT ONE Administration Prednisone Confirm 07/09/24 20:46 Prednisone 20 Mg Tablet Administered 07/09/24 20:47 Dose 20 mg .ROUTE .STK-MED ONE - Progress Progress: unchanged Progress Note: 07/09/24 21:00 My medical decision making and the assignment of low complexity to this patient's medical issue today is based on review of the patient's past medical history, review of the patient's medication list, review patient drug allergy list, history present illness and physical findings on examination. The workup in this patient does not require laboratory radiographic studies. Will provide the patient with a dose of Keflex antibiotic and a dose of prednisone orally then remotely send the same to her pharmacy. Counseled pt/family regarding: diagnosis, need for follow-up Medical Desision Making - Diagnostic Testing Diagnostic test were ordered, analyzed, and reviewed by me: No - Risk of complications The pt has a mod risk of morbidity or mortality based on: Need for prescription drug management - Departure Departure Disposition: Home Clinical Impression: Cellulitis of left upper eyelid Condition: Stable Critical Care Time: No Referrals: DOCTOR,NO FAMILY [Primary Care Provider] - Follow up/PCP as directed Additional Instructions: Cool compresses to area of redness and swelling as needed. Use Tylenol for pain control if there are no contraindications. Take your antibiotics and steroids as prescribed. Call your primary care provider tomorrow, 07/10/2024 to make arrangements for follow-up appointment for further evaluation management. Prescriptions: Prednisone 10 mg [Deltasone 10 mg] 10 mg PO TID #12 tablet Cephalexin Mh 500 mg [Keflex 500 mg] 500 mg PO TID #15 cap
[2024-07-09 19:14] VITALS: TEMP 97.1
[2024-07-09] MEDS ORDERED: KEFLEX 500 MG ONE (20:46)
[2024-07-09] MEDS ORDERED: DELTASONE 20 MG ONE (20:46)
[2024-07-09] MEDS: DELTASONE 20 MG PO ONE (20:47)
[2024-07-09] MEDS: KEFLEX 500 MG PO ONE (20:47)
[2024-07-09 21:17] VITALS: BP 139/87; PULSE 81; RESP 18; O2SAT 98
== END 2024-07-09 21:20 | disposition home or self-care (01) ==
LOC: ED 18:58
DX: H00.034 Abscess of left upper eyelid (principal); Z79.52 Long term (current) use of systemic steroids; Z79.899 Other long term (current) drug therapy
CPT/HCPCS: 99282; A9270-GY

== ENCOUNTER 2024-07-18 17:05 | Emergency (ER) | payer OTHER ==
[2024-07-18 17:32] VITALS: TEMP 97
--- NOTE | 2024-07-18 17:50 | ERPHSYRPT ---
- History of Present Illness Historian: patient Exam Limitations: no limitations Patient Subjective Stated Complaint: pt here for not feeling wwell for 9 days now, she states she had dark blood in emesis and in stool, she states last bm as 2 days ago and last time vomited was yesterday. she also states she has also had bruising to right side of abd, denies injury Triage Nursing Assessment: pt alert, walked in, resp easy, skin w/d/p,nail beds pink,abd soft, and flat, no edema noted, moves all ext well Timing/Duration: week(s) Hx Tetanus, Diphtheria Vaccination/Date Given: Yes Hx Influenza Vaccination/Date Given: No Hx Pneumococcal Vaccination/Date Given: No Immunizations Up to Date: Yes <DORA JOYNER - Last Filed: 07/18/24 17:45> <RASTA YBARRA - Last Filed: 07/19/24 03:04> - History of Present Illness Time Seen by Provider: 07/18/24 17:45 Physician History: Patient is been having abdominal pain for about 8 days. She had dark stools that she said look like charcoal for about 7 days that is stopped. She is now continue to have some abdominal pain. She says its sharp and burning. She has not had problems like this before. She does not have a fever or chills. She does not have any nausea or vomiting.She has never had problems like this before. She has no fever or chills. Nothing really makes the symptoms better or worse. She said that her primary doctor told her to go to the ER. She did and waited but left. This was about 4 5 days ago she came in today.She does not take any blood thinners or anything like that. She does not have any external bruising or signs or symptoms of low platelets. (DORA JOYNER) Allergies/Adverse Reactions: citalopram hydrobromide [From Celexa] Allergy (Verified 07/09/24 19:05) ketorolac [From Toradol] Allergy (Verified 07/09/24 19:05) Sulfa (Sulfonamide Antibiotics) Allergy (Verified 07/09/24 19:05) tramadol HCl [From Ultram] Allergy (Verified 07/09/24 19:05) Travel Risk - International Travel Have you traveled outside of the country in past 3 weeks: No - Emerging Infectious Disease Are you exhibiting symptoms associated with any current EIDs: No <DORA JOYNER - Last Filed: 07/18/24 17:45> - Review of Systems Constitutional: Malaise Eyes: No Symptoms Ears, Nose, & Throat: No Symptoms Respiratory: No Symptoms Cardiac: No Symptoms Abdominal/Gastrointestinal: Abdominal Pain Genitourinary Symptoms: No Symptoms Musculoskeletal: No Symptoms Skin: No Symptoms Neurological: No Symptoms Psychological: No Symptoms All Other Systems: Reviewed and Negative <DORA JOYNER - Last Filed: 07/18/24 17:45> - Past Medical History Pertinent Past Medical History: Yes Musculoskeletal History: Other Psycho-Social History: Anxiety, Attention Deficit Disorder, Depression Female Reproductive Disorders: Cervical Cancer, Endometriosis Other Medical History: SHOULDER SURGERY X 4 FOR TORN MUSCLES AND SHREDDED IN LEFT SHOULDER ,lupus - Past Surgical History Past Surgical History: Yes Neuro Surgical History: No Pertinent History Cardiac: No Pertinent History Respiratory: No Pertinent History Gastrointestinal: Appendectomy, Exploratory Laparoscopy Musculoskeletal: Orthopedic Surgery Female Surgical History: Hysterectomy, Dilation & Curettage, Section Other Surgical History: left wrist - plate and screws,skin grafting. granulomas removed from lower abdomen. cyst removed from right neck. deviated septum repair. sinus surgery. tube to rt ear Significant Family History: no pertinent family hx - Female History Hx Last Menstrual Period: hyster Hx Now: No - Social History Smoking Status: Former smoker Exposure to second hand smoke: No Drug Use: none Patient Lives Alone: No - Social Determinants of Health Will the patient participate in the screening: Yes Do you worry about a steady place to live?: No Do you have any problems with any of the following?: No known problems In the past 12 months,have you had to go without utilities?: No Transportation Issues: No Has anyone in your support network made you feel unsafe?: No Have you or anyone in your house had to go without enough: No <DORA JOYNER - Last Filed: 07/18/24 17:45> - Physical Exam General Appearance: no apparent distress Eye Exam: PERRL/EOMI Ears, Nose, Throat Exam: normal ENT inspection Respiratory Exam: normal breath sounds, chest tenderness, lungs clear Cardiovascular Exam: regular rate/rhythm, normal heart sounds Gastrointestinal/Abdomen Exam: soft, normal bowel sounds, No tenderness, No distention, No mass, No guarding Back Exam: normal inspection Extremity Exam: normal inspection Neurologic Exam: alert, oriented x 3 Skin Exam: normal color, warm, dry SpO2: 99 <DORA JOYNER - Last Filed: 07/18/24 17:45> - Nursing Vital Signs Nursing Vital Signs: Initial Vital Signs Temperature 97.0 F 07/18/24 17:31 Pulse Rate 70 07/18/24 17:31 Respiratory Rate 18 07/18/24 17:31 Blood Pressure 112/76 07/18/24 17:31 O2 Sat by Pulse Oximetry 97 07/18/24 17:31 Pain Scale Pain Intensity 9 - Course Nursing assessment & vital signs reviewed: Yes - CT Exams Abdomen/Pelvis CT Interpretation: Negative, Tele-radiologist Report <RASTA YBARRA - Last Filed: 07/19/24 03:04> Ordered Tests: Active Orders 24 hr Category Date Time Status IV Insertion STAT Care 07/18/24 17:52 Completed ABDOMEN AND PELVIS W&WO CONTRA [CT] Stat Exams 07/18/24 17:25 Completed CBC W DIFF Stat Lab 07/18/24 17:53 Completed CMP Stat Lab 07/18/24 17:53 Completed PROTIME WITH INR Stat Lab 07/18/24 17:53 Completed PTT Stat Lab 07/18/24 17:53 Completed Medication Summary Discontinued Medications Generic Name Dose Route Start Last Admin Trade Name Tavia PRN Reason Stop Dose Admin Hydrocodone Bitart/Acetaminophen 1 tab 07/18/24 17:51 07/18/24 17:59 Hydrocodone/Apap 5/325 1 Tab Tablet PO 07/18/24 17:52 Not Given STAT ONE Droperidol 1.25 mg 07/18/24 19:22 07/18/24 19:35 Droperidol 5 Mg/2 Ml Vial IV 07/18/24 19:23 1.25 mg STAT ONE Administration Droperidol Confirm 07/18/24 19:33 Droperidol 5 Mg/2 Ml Vial Administered 07/18/24 19:34 Dose 5 mg .ROUTE .STK-MED ONE Hydromorphone HCl 1 mg 07/18/24 17:51 07/18/24 17:56 Hydromorphone 1 Mg/1ml Inj IV 07/18/24 17:52 1 mg STAT ONE Administration Hydromorphone HCl Confirm 07/18/24 17:55 Hydromorphone 1 Mg/1ml Inj Administered 07/18/24 17:56 Dose 1 mg .ROUTE .STK-MED ONE Ondansetron HCl 4 mg 07/18/24 17:51 07/18/24 17:56 Ondansetron Hcl 4 Mg/2 Ml Vial IV 07/18/24 17:52 4 mg STAT ONE Administration Ondansetron HCl Confirm 07/18/24 17:55 Ondansetron Hcl 4 Mg/2 Ml Vial Administered 07/18/24 17:56 Dose 4 mg .ROUTE .STK-MED ONE Lab/Rad Data: Laboratory Result Diagrams 07/18/24 17:53 07/18/24 17:53 Laboratory Results 07/18/24 07/18/24 07/18/24 Range/Units 17:53 17:53 17:53 WBC 7.0 (3.98-10.04) x10^3/uL RBC 4.06 (3.93-5.22) x10^6/uL Hgb 12.8 (11.2-15.7) g/dL Hct 38.7 (34.1-44.9) % MCV 95.3 H (79.4-94.8) fL MCH 31.5 (25.6-32.2) pg MCHC 33.1 (32.2-35.5) g/dL RDW 12.0 (11.7-14.4) % Plt Count 266 (182-369) x10^3/uL MPV 9.2 L (9.4-12.3) fL Gran % 49.2 (34.0-71.1) % Immature Gran % (Auto) 0.3 (0.001-0.429) % Nucleat RBC Rel Count 0.0 (0.00-0.2) % Eos # (Auto) 0.08 (0.04-0.36) x10^3/uL Immature Gran # (Auto) 0.02 (0.001-0.031) x10^3u/L Absolute Lymphs (auto) 2.97 (1.18-3.74) x10^3/uL Absolute Monos (auto) 0.48 (0.24-0.86) x10^3/uL Absolute Nucleated RBC 0.00 (0.00-0.012) x10^3u/L Lymphocytes % 42.3 (19.3-51.7) % Monocytes % 6.8 (4.7-12.5) % Eosinophils % 1.1 (0.7-5.8) % Basophils % 0.3 (0.1-1.2) % Absolute Granulocytes 3.45 (1.56-6.13) x10^3/uL Basophils # 0.02 (0.01-0.08) x10^3/uL PT 10.4 (9.4-12.5) SECONDS INR 0.95 (0.8-3.0) APTT 26.5 (25.1-36.5) SECONDS Sodium 142 (135-145) mmol/L Potassium 4.1 (3.5-5.1) mmol/L Chloride 106 (98-107) mmol/L Carbon Dioxide 26 (22-30) mmol/L Anion Gap 14.0 (5-15) MEQ/L BUN 19 H (7-17) mg/dL Creatinine 0.82 (0.52-1.04) mg/dL Estimated GFR 94.4 ML/MIN Glucose 100 (74-106) mg/dL Calcium 9.2 (8.4-10.2) mg/dL Total Bilirubin 0.70 (0.2-1.3) mg/dL AST 22 (14-36) U/L ALT 18 (0-35) U/L Alkaline Phosphatase 63 (38-126) U/L Serum Total Protein 7.2 (6.3-8.2) g/dL Albumin 4.3 (3.5-5.0) g/dL - Progress Progress: improved Counseled pt/family regarding: lab results, diagnosis, need for follow-up, rad results <RASTA YBARRA - Last Filed: 07/19/24 03:04> - Progress Progress Note: 07/18/24 20:28 Assumed care at 1900, CT abd/pelvis pending. CT resulted and showed no acute abd pathology. On reevaluation patient reported dysuria, but just urinated prior to coming into the room. I will empirically tx for UTI with Macrobid and send Zofran to pharmacy. (RASTA YBARRA) Medical Desision Making - Diagnostic Testing Diagnostic test were ordered, analyzed, and reviewed by me: Yes Radiological Interpretation: Interpreted by me, Reviewed by me, Teleradiologist Report - Risk of complications The pt has a mod risk of morbidity or mortality based on: Need for prescription drug management <RASTA YBARRA - Last Filed: 07/19/24 03:04> <DORA JOYNER - Last Filed: 07/18/24 17:45> - Departure Departure Disposition: Home Critical Care Time: No <RASTA YBARRA - Last Filed: 07/19/24 03:04> - Departure Clinical Impression: Urinary tract infection, Abdominal pain, Nausea Condition: Good Referrals: DOCTOR,NO FAMILY [Primary Care Provider] - Follow up/PCP as directed Instructions: Urinary Tract Infection, Adult ED Prescriptions: Nitrofurantoin Macro 100 mg [Macrobid 100MG Capsule] 100 mg PO BID 5 Days #10 cap ondansetron HCL [Zofran] 8 mg PO TID PRN 5 Days #15 tablet PRN Reason: Nausea/Vomiting
[2024-07-18] MEDS ORDERED: Zofran 4 MG/2 ML VIAL ONE (17:55)
[2024-07-18] MEDS ORDERED: Hydromorphone 1 mg/ml Injection ONE (17:55)
[2024-07-18] MEDS: Zofran 4 MG/2 ML VIAL IV ONE (17:56)
[2024-07-18] MEDS: Hydromorphone 1 mg/ml Injection IV ONE (17:56)
[2024-07-18 17:57] LABS: Absolute Neutrophil Ct (ANC) 3.45 x10^3/uL (1.56-6.13); BASOPHIL % 0.3 % (0.1-1.2); Basophil (Absolute #) 0.02 x10^3/uL (0.01-0.08); Eosinophil % 1.1 % (0.7-5.8); Eosinophil (Absolute #) 0.08 x10^3/uL (0.04-0.36); Hematocrit 38.7 % (34.1-44.9); Hemoglobin 12.8 g/dL (11.2-15.7); IMMATURE GRAN # 0.02 x10^3u/L (0.001-0.031); IMMATURE GRAN % 0.3 % (0.001-0.429); Lymphocyte (Absolute #) 2.97 x10^3/uL (1.18-3.74); Lymphocytes % 42.3 % (19.3-51.7); Mean Cell Volume 95.3 fL (79.4-94.8); Mean Corpuscular Hemoglobin 31.5 pg (25.6-32.2); Mean Corpuscular Hgb Concent. 33.1 g/dL (32.2-35.5); Mean Platelet Volume 9.2 fL (9.4-12.3); Monocyte (Absolute #) 0.48 x10^3/uL (0.24-0.86); Monocytes % 6.8 % (4.7-12.5); Neutrophil % 49.2 % (34.0-71.1); Platelet Count 266 x10^3/uL (182-369); Red Blood Count 4.06 x10^6/uL (3.93-5.22)
[2024-07-18] MEDS: NORCO 5/325 MG PO ONE (17:59)
[2024-07-18 18:07] VITALS: PULSE 84
[2024-07-18 18:13] LABS: ALBUMIN 4.3 g/dL (3.5-5.0); BILIRUBIN,TOTAL 0.7 mg/dL (0.2-1.3); Calcium 9.2 mg/dL (8.4-10.2); Creatinine 1 0.82 mg/dL (0.52-1.04); EST GLOMERULAR FILTRATION RATE 94.4 ML/MIN; Potassium 4.1 mmol/L (3.5-5.1); Total Protein 7.2 g/dL (6.3-8.2)
[2024-07-18 18:15] LABS: INR 0.95 (0.8-3.0); PROTIME 10.4 SECONDS (9.4-12.5); PTT 26.5 SECONDS (25.1-36.5)
--- NOTE | 2024-07-18 19:51 | XRAY ---
CLINICAL HISTORY: gi bleed COMPARISON: No prior studies available for comparison. TECHNIQUE: CT of the abdomen and pelvis was performed with and without 80 cc isovue-370 contrast, with the following protocol: axial images with, and reconstructed coronal and sagittal images. One of the following dose reduction techniques was utilized for this exam: Automated exposure control, adjustment of the mA and/or kV according to patient size, and use of iterative reconstruction. FINDINGS: Abdomen: Liver: Normal in size, shape, and density measuring about 17cm. A few calcified foci are seen in the liver likely signifying calcified granulomas, the largest about 7.06mm in right lobe segment . Hepatic vasculature and biliary ducts are unremarkable. Gallbladder and Biliary System: The gallbladder is normal in size and shape. No wall thickening, pericholecystic fluid, or gallstones were identified. The common bile duct is normal in caliber without dilation. Pancreas: Pancreatic head, body, and tail are visualized and appear normal in size and density. No pancreatic masses or calcifications were noted. The pancreatic duct is not dilated. Spleen: Normal in size, shape, and density. No splenic lesions or masses were identified. Kidneys and Adrenal Glands: Both kidneys are normal in size, shape, and position. Cortical thickness is within normal limits. No renal calculi or hydronephrosis. Adrenal glands are unremarkable with no evidence of masses or hyperplasia. Pelvis: Urinary Bladder: Normal in contour and wall thickness. No intraluminal lesions were identified. Uterus: Not visualized, for clinical correlation. Ovaries: Not well visualized but no gross abnormalities were noted. Bowel: The visualized bowel loops are normal in caliber and appearance. No evidence of bowel obstruction or wall thickening. Bones and Soft Tissues: Pelvic bones and soft tissues are unremarkable. No fractures or abnormal masses were identified. Mild lumbar spondylosis with disc bulges is noted at L4-L5 and L5-S1 levels. IMPRESSION: 1. No acute intra-abdominal abnormality is seen. 2. Hepatic calcified granulomas. 3. Mild lumbar spondylosis with disc bulges at L4-L5 and L5-S1 levels. 4. No other significant abnormality is seen in the CT abdomen and pelvis. Electronically Signed by: Ann Marie Barfield MD. (07/18/2024 19:46:31 EDT)
[2024-07-18 20:00] VITALS: RESP 18; O2SAT 98
[2024-07-18 20:48] VITALS: BP 103/75
== END 2024-07-18 20:46 | disposition home or self-care (01) ==
LOC: ED 17:05
DX: N39.0 Urinary tract infection, site not specified (principal); R10.9 Unspecified abdominal pain; R11.0 Nausea; Z79.899 Other long term (current) drug therapy
CPT/HCPCS: 36000; 36415; 74178; 80053; 85025; 85610; 85730; 96374; 96375; 99284; J1170; J2405